=== PATIENT | female | born 1970 | race Caucasian/White ===

== ENCOUNTER 2017-01-10 08:10 | Emergency (ER) | payer OTHER ==
[~2017-01-10] VITALS: Ht 172.7 cm; Wt 67.3 kg
[~2017-01-10 08:10] MED LIST: AZIT-12 PO; CEFD1CAP8 PO; IPRASOL4 IN; IPRASOL4 NEB; NICO14PA TD; NICO2GUM62 PO; PERCOCET PO; TIOT18INH INH; TYLE325T5 PO; XARE1TAB PO
[2017-01-10] MEDS ORDERED: LOSA50TA20 PO (08:38)
[2017-01-10] MEDS ORDERED: diphenhydrAMINE INJ 50MG/ML VIAL (J1200) IV STA (09:41)
[2017-01-10] MEDS ORDERED: PANTOPRAZOLE 40MG INJ (PROTONIX) (C9113) IV ONE (09:45)
[2017-01-10] MEDS ORDERED: ONDANSETRON 4MG/2ML VIAL (J2405) IV ONE (09:45)
[2017-01-10] MEDS ORDERED: NS 1,000 ML IV ONE (09:45)
[2017-01-10 10:05] LABS: BASO % 0.4 % (0.0-1.0); EOS # 0.1 K/mm3 (0.0-0.50); EOS % 0.9 % (0.0-3.0); LARGE UNSTAINED CELL # 0.2 K/mm3 (0.0-0.4); LARGE UNSTAINED CELL % 1.4 % (0.0-4.0); LYMPH # 2.3 K/mm3 (1.5-4.5); MEAN CORPUSCULAR HEMOGLOBIN 35.3 pg (27.0-33.0); MEAN CORPUSCULAR HGB CONC 34.2 g/dl (32.0-36.5); MEAN CORPUSCULAR VOLUME 103.3 fl (80.0-96.0); MONO # 0.7 K/mm3 (0.0-0.8); MONO % 5.6 % (0.0-5.0); NEUTROPHILS # 8.3 K/mm3 (1.8-7.7); NEUTROPHILS % 71.7 % (36.0-66.0); PLATELET COUNT, AUTOMATED 381 k/mm3 (150-450); RED CELL DISTRIBUTION WIDTH 12.5 % (11.5-14.5); WHITE BLOOD COUNT 11.6 K/mm3 (4.0-10.0)
[2017-01-10 10:13] LABS: ALBUMIN 3.9 GM/DL (3.2-5.2); ALBUMIN/GLOBULIN RATIO 1.15 (1.00-1.93); ALKALINE PHOSPHATASE 126 U/L (45-117); ALT/SGPT 23 U/L (12-78); AMYLASE 24 U/L (25-115); ANION GAP 6 MEQ/L (8-16); AST/SGOT 22 U/L (15-37); BILIRUBIN,DIRECT 0.2 MG/DL (0.0-0.2); BILIRUBIN,TOTAL 0.8 MG/DL (0.2-1.0); BLOOD UREA NITROGEN 10 MG/DL (7-18); CALCIUM LEVEL 9.1 MG/DL (8.5-10.1); CARBON DIOXIDE LEVEL 27 MEQ/L (21-32); CHLORIDE LEVEL 108 MEQ/L (98-107); CREATININE FOR GFR 0.91 MG/DL (0.55-1.02); GLOMERULAR FILTRATION RATE > 60.0 (>58); GLUCOSE, FASTING 105 MG/DL (70-105); POTASSIUM SERUM 3.9 MEQ/L (3.5-5.1); SODIUM LEVEL 141 MEQ/L (136-145); TOTAL PROTEIN 7.3 GM/DL (6.4-8.2)
[2017-01-10] MEDS ORDERED: ACETAMINOPHEN 325 MG TAB PO ONE (10:45)
[2017-01-10] MEDS ORDERED: CLAR1TAB2 PO (11:16)
[2017-01-10] MEDS ORDERED: ZOFR4TAB3 PO (11:16)
[2017-01-10 11:33] VITALS: BP 117/75
[2017-01-11] MEDS ORDERED: BENA25TA10 PO (06:05)
--- NOTE | 2017-01-12 08:50 | ECGEPIP ---
Stationary ECG Study [facility] - ED Test Date: 2017-01-10 Pat Name: GAIL CALDERON Department: Room: - Gender: F Residence Director: leandro : 1970 Requested By: ELLIOTT PITTS PA-C. Order Number: [id number] Reading MD: Kirsten Aiken Measurements Intervals [place] Rate: 53 P: 68 MO: 155 QRS: 31 QRSD: 109 T: 16 QT: 455 QTc: 430 Interpretive Statements SINUS BRADYCARDIA WITH SINUS ARRHYTHMIA LOW VOLTAGE LIMB DECREASED RATE 01/31/16 Electronically Signed On 01-12-2017 8:49:57 EDT by Kirsten Aiken
== END 2017-01-10 11:35 | disposition home or self-care (01) ==
LOC: M ED 08:54
DX: R19.7 Diarrhea, unspecified (principal); L25.5 Unspecified contact dermatitis due to plants, except food; F17.200 Nicotine dependence, unspecified, uncomplicated; I10 Essential (primary) hypertension; Z86.711 Personal history of pulmonary embolism; Z79.899 Other long term (current) drug therapy; Z88.2 Allergy status to sulfonamides
CPT/HCPCS: 80048; 80076; 81001; 81025; 82150; 83690; 85025; 93005; 96374; 96375; 99284; C9113; J1200; J2405

== ENCOUNTER 2017-01-11 05:45 | Emergency (ER) | payer OTHER ==
[~2017-01-11] VITALS: Ht 172.7 cm; Wt 67.3 kg
[~2017-01-11 05:45] MED LIST changes: -AZIT-12 PO; +AZIT250T3 PO; +CLAR1TAB2 PO; +LOSA50TA20 PO; +ZOFR4TAB3 PO
[2017-01-11 05:49] VITALS: BP 110/78
[2017-01-11] MEDS ORDERED: BENA25TA9 PO (06:05)
== END 2017-01-11 07:58 | disposition left against medical advice (07) ==
LOC: M ED 07:10
DX: R21 Rash and other nonspecific skin eruption (principal); Z53.29 Procedure and treatment not carried out because of patient's decision for other reasons

== ENCOUNTER → 2017-05-06 | Outpatient (REF) | payer OTHER ==
[~2017-05-06] MED LIST changes: +AZIT-12 PO; -AZIT250T3 PO; +BENA25TA10 PO
== END ==
LOC: M SFHCCLAY 08:51
PROVIDERS: ATTEND Nurse Practitioner Family
DX: I10 Essential (primary) hypertension (principal)

== ENCOUNTER → 2017-10-19 | Outpatient (REF) | payer OTHER ==
[2017-10-19 14:40] LABS: FOLATE 3.6 NG/ML; VITAMIN B12 LEVEL 416 PG/ML
[2017-10-19 14:42] LABS: ESTIMATED AVERAGE GLUCOSE 88 MG/DL (60-110); HEMOGLOBIN A1c 4.7 %
[2017-10-19 14:44] LABS: FREE T4 0.89 NG/DL (0.76-1.46); RHEUMATOID FACTOR QUANT < 10.0 IU/ML (<15.0); TOTAL PROTEIN 7.8 GM/DL (6.4-8.2)
[2017-10-19 15:17] LABS: ERYTHROCYTE SEDIMENTATION RATE 2 mm/hr (0-20)
[2017-10-20 11:14] LABS: ALBUMIN 4.73 GM/DL (3.29-5.55); ALBUMIN % 60.7 % (55.8-66.1); ALPHA-1-GLOBULIN % 4.9 % (2.9-4.9); ALPHA-1-GLOBULINS 0.38 GM/DL (0.17-0.41); ALPHA-2-GLOBULINS % 11.5 % (7.1-11.8); BETA-1-GLOBULINS 0.47 GM/DL (0.28-0.60); BETA-2-GLOBULINS % 5.1 % (3.2-6.5); GAMMA GLOBULIN % 11.8 % (11.1-18.8); GAMMA GLOBULINS 0.92 GM/DL (0.65-1.58)
[2017-10-22 08:06] LABS: ANTI THROMBIN 3 FUNCT ACTIVITY 178 % (75-135); PROTEIN C FUNCTIONAL ACTIVITY 149 % (73-180); PROTEIN S FUNCTIONAL ACTIVITY 154 % (63-140); VITAMIN B1 LEVEL WHOLE BLOOD 179.2 nmol/L (66.5-200.0); VITAMIN B6,PYRIDOXAL PHOSPHATE 4.8 ug/L (2.0-32.8)
== END ==
LOC: M LABNEURO 09:12
DX: R20.0 Anesthesia of skin (principal); D68.59 Other primary thrombophilia; Z13.1 Encounter for screening for diabetes mellitus
CPT/HCPCS: 82746

== ENCOUNTER → 2017-12-30 | Outpatient (REF) | payer OTHER ==
[2017-12-30 13:45] LABS: IMMUNOGLOBULIN G 696 MG/DL (681-1648); IMMUNOGLOBULIN M 132 MG/DL (40-230)
[2017-12-30 14:02] LABS: TOTAL PROTEIN,RANDOM URINE < 5.0 MG/DL (0.0-12.0); URINE TOTAL PROTEIN < 5.0 MG/DL (0-12)
[2017-12-30 17:38] LABS: REASON FOR REVIEW WBC/LEUKEMIA/BLAST; SLIDE REVIEW Report; SOURCE PERIPHERAL SMEAR
[2018-01-01 00:09] LABS: FREE LAMBDA LIGHT CHAINS SERUM 12.3 mg/L (5.7-26.3); KAPPA/LAMBDA RATIO SERUM 1.06 (0.26-1.65)
[2018-01-04 12:38] LABS: TOTAL PROTEIN 6.8 GM/DL (6.4-8.2)
[2018-01-04 12:39] LABS: ALPHA-1-GLOBULIN % 4.9 % (2.9-4.9); ALPHA-2-GLOBULINS % 11.1 % (7.1-11.8)
[2018-01-04 12:40] LABS: ALBUMIN 4.15 GM/DL (3.29-5.55); ALPHA-1-GLOBULINS 0.33 GM/DL (0.17-0.41); ALPHA-2-GLOBULINS 0.75 GM/DL (0.42-0.99); BETA-1-GLOBULINS % 5.9 % (4.7-7.2); BETA-2-GLOBULINS 0.33 GM/DL (0.19-0.55); BETA-2-GLOBULINS % 4.9 % (3.2-6.5); GAMMA GLOBULIN % 12.2 % (11.1-18.8); GAMMA GLOBULINS 0.83 GM/DL (0.65-1.58)
== END ==
LOC: M LAB REF 12:56
DX: D72.829 Elevated white blood cell count, unspecified (principal)

== ENCOUNTER → 2018-01-21 | Outpatient (REF) | payer OTHER ==
[2018-01-21 13:57] LABS: VITAMIN B12 LEVEL 360 PG/ML (247-911)
[2018-01-28 00:10] LABS: HOMOCYST(E)INE SERUM 34.6 umol/L (0.0-15.0)
[2018-01-28 00:10] LABS: Methylmalonic Acid 156 nmol/L (0-378)
== END ==
LOC: M LAB REF 13:08
DX: Z00.00 Encounter for general adult medical examination without abnormal findings (principal)

== ENCOUNTER → 2018-04-18 | Outpatient (REF) | payer OTHER ==
[2018-04-18 18:38] LABS: BASO # 0.1 10^3/uL (0.0-0.2); BASO % 0.6 % (0.0-1.0); EOS # 0.2 10^3/uL (0.0-0.50); EOS % 1.2 % (0.0-3.0); HEMATOCRIT 39.7 % (36.0-47.0); HEMOGLOBIN 13.7 g/dl (12.0-15.5); IMMATURE GRANULOCYTE % 0.5 % (0-3.0); LYMPH # 3.2 10^3/uL (1.5-4.5); LYMPH % 25.2 % (24.0-44.0); MEAN CORPUSCULAR HEMOGLOBIN 34.6 pg (27.0-33.0); MEAN CORPUSCULAR HGB CONC 34.5 g/dl (32.0-36.5); MEAN CORPUSCULAR VOLUME 100.3 fl (80.0-96.0); MONO # 0.9 10^3/uL (0.0-0.8); MONO % 6.9 % (0.0-5.0); NEUTROPHILS # 8.3 10^3/uL (1.8-7.7); NEUTROPHILS % 65.6 % (36.0-66.0); PLATELET COUNT, AUTOMATED 364 10^3/uL (150-450); RED BLOOD COUNT 3.96 10^6/uL (4.00-5.40); RED CELL DISTRIBUTION WIDTH 12.4 % (11.5-14.5); WHITE BLOOD COUNT 12.7 10^3/uL (4.0-10.0)
[2018-04-18 18:40] LABS: CONTROL LINE HCG INT CTR LINE PRESENT; HCG, SERUM QUALITATIVE NEGATIVE (NEGATIVE)
[2018-04-18 18:48] LABS: ANION GAP 10 MEQ/L (8-16); BLOOD UREA NITROGEN 17 MG/DL (7-18); CALCIUM LEVEL 8.7 MG/DL (8.5-10.1); CARBON DIOXIDE LEVEL 23 MEQ/L (21-32); CHLORIDE LEVEL 108 MEQ/L (98-107); CHOLESTEROL LEVEL 147 MG/DL (<200); CHOLESTEROL RISK RATIO 2.409 (<5); CREATININE FOR GFR 0.93 MG/DL (0.55-1.30); GLOMERULAR FILTRATION RATE > 60.0 (>58); GLUCOSE, FASTING 84 MG/DL (70-100); HDL CHOLESTEROL 61 MG/DL (>40); LDL CHOLESTEROL 58 MG/DL (<100); NON-HDL-C 86 MG/DL; SODIUM LEVEL 141 MEQ/L (136-145); TRIGLYCERIDES LEVEL 140 MG/DL (<150)
[2018-04-21 00:11] LABS: HOMOCYST(E)INE SERUM 31.9 umol/L (0.0-15.0)
== END ==
LOC: M SFHCCLAY 08:51
DX: I10 Essential (primary) hypertension (principal); Z01.818 Encounter for other preprocedural examination

== ENCOUNTER 2018-06-20 18:54 | Emergency (ER) | payer OTHER | END 2018-06-20 20:45 | disposition home or self-care (01) | LOC: M ED 20:45 | DX: S09.93XA Unspecified injury of face, initial encounter (principal); Y04.8XXA Assault by other bodily force, initial encounter; Y07.01 Husband, perpetrator of maltreatment and neglect; Y92.018 Other place in single-family (private) house as the place of occurrence of the external cause; I10 Essential (primary) hypertension; D68.2 Hereditary deficiency of other clotting factors; Z88.1 Allergy status to other antibiotic agents; Z88.2 Allergy status to sulfonamides; F17.210 Nicotine dependence, cigarettes, uncomplicated | CPT/HCPCS: 99284 ==

== ENCOUNTER → 2018-12-22 | Outpatient (REF) | payer OTHER ==
[~2018-12-22] MED LIST changes: +IPRA0.00 IN; +IPRA0.00 NEB; -IPRASOL4 IN; -IPRASOL4 NEB; -LOSA50TA20 PO; +LOSA50TA88 PO; +ZOFR4TAB14 PO; -ZOFR4TAB3 PO
[2018-12-22 17:47] LABS: BASO # 0.1 10^3/uL (0.0-0.2); BASO % 0.5 % (0.0-1.0); EOS # 0.2 10^3/uL (0.0-0.50); EOS % 1.3 % (0.0-3.0); HEMATOCRIT 39.2 % (36.0-47.0); HEMOGLOBIN 13.6 g/dl (12.0-15.5); LYMPH # 3.8 10^3/uL (1.5-4.5); LYMPH % 21.7 % (24.0-44.0); MEAN CORPUSCULAR HEMOGLOBIN 33.9 pg (27.0-33.0); MEAN CORPUSCULAR HGB CONC 34.7 g/dl (32.0-36.5); MEAN CORPUSCULAR VOLUME 97.8 fl (80.0-96.0); MONO # 1.5 10^3/uL (0.0-0.8); MONO % 8.5 % (0.0-5.0); NEUTROPHILS # 11.8 10^3/uL (1.8-7.7); NEUTROPHILS % 67.4 % (36.0-66.0); PLATELET COUNT, AUTOMATED 337 10^3/uL (150-450); RED BLOOD COUNT 4.01 10^6/uL (4.00-5.40); WHITE BLOOD COUNT 17.5 10^3/uL (4.0-10.0)
[2018-12-22 17:51] LABS: ALBUMIN 3.7 GM/DL (3.2-5.2); BILIRUBIN,TOTAL 0.5 MG/DL (0.2-1.0); CALCIUM LEVEL 8.9 MG/DL (8.5-10.1); CREATININE FOR GFR 1.11 MG/DL (0.55-1.30); GLOMERULAR FILTRATION RATE 56.1 (>58); POTASSIUM SERUM 3.6 MEQ/L (3.5-5.1); TOTAL PROTEIN 6.6 GM/DL (6.4-8.2)
== END ==
LOC: M LABNEURO 15:07
PROVIDERS: ATTEND Psychiatry & Neurology Neurology
DX: C95.90 Leukemia, unspecified not having achieved remission (principal)

== ENCOUNTER → 2018-12-22 | Outpatient (CLI) | payer OTHER ==
--- NOTE | 2018-12-22 16:43 | REP ---
Clinical: Myeloma. Technique: 16 total images of the axial and appendicular skeletal structures. Findings: Bone survey demonstrates no significant or suspicious lytic or blastic osseous lesions. The osseous structures and joint spaces are essentially intact and age appropriate. Impression: No significant osseous lesions are appreciated. Electronically Signed by Al Frederick MD 12/22/2018 04:34 P
== END ==
LOC: M RAD 15:39
PROVIDERS: ATTEND Psychiatry & Neurology Neurology
DX: M94.9 Disorder of cartilage, unspecified (principal)

== ENCOUNTER → 2019-01-24 | Outpatient (CLI) | payer OTHER ==
[~2019-01-24] MED LIST changes: +GABA-845 PO; +LOVE1INJ SC; +XARE10TA PO
--- NOTE | 2019-01-25 14:46 | REP ---
REASON FOR EXAMINATION: Neoplasm of uncertain behavior of bone. There are no prior CT scans to review. There is no prior CT/PET examination to review. After the intravenous administration of 9.73 millicuries of FDG18 triplane whole body PET/CT was performed from the skull base to the mid thigh. There is no abnormal hypermetabolic activity seen in the neck, chest, abdomen, or pelvis. Standard CT component of today's examination shows an oval-shaped 5 x 4.2 x 4.6 cm sized water Hounsfield unit reading structure in the right hemipelvis consistent with a cyst. IMPRESSION: 1. No abnormal hypermetabolic activity is present. 2. Right hemipelvic cystic structure as described above. Followup with pelvic ultrasonography is recommended. Electronically Signed by Ryan Pate DO 01/25/2019 03:43 P
== END ==
LOC: M PLARAD 12:16
PROVIDERS: ATTEND Internal Medicine
DX: D48.0 Neoplasm of uncertain behavior of bone and articular cartilage (principal)
CPT/HCPCS: 78815; A9552

== ENCOUNTER → 2019-03-01 | Outpatient (CLI) | payer OTHER ==
[~2019-03-01] MED LIST changes: +GABA600T4 PO; +NICO2GUM52 PO; -NICO2GUM62 PO
--- NOTE | 2019-03-02 06:01 | REP ---
Clinical: Cyst . Technique: Transabdominal pelvic ultrasound followed by transvaginal examination for better evaluation of the endometrium and adnexa with color Doppler evaluation of the ovaries. Findings: Bladder is unremarkable and measures 7.0 x 6.7 x 8.9 cm. Normal anteverted uterus measures 7.7 x 3.6 x 4.6 cm. The endometrial complex measures 5.4 mm thickness and small adjacent echogenic foci may represent small chronic nonspecific calcifications. No discrete uterine or endometrial mass lesion appreciated. Bilateral ovaries are normal in appearance and vascularity without evidence for torsion. Right ovary measures 4.7 x 4.0 x 5.2 cm with 4.3 x 3.7 x 3.9cm cyst ; R I = 0.39 . Left ovary measures 2.2 x 1.6 x 2.3 cm with 1.3 cm dominant follicle ; R I = 0.56. No pelvic fluid or adnexal mass lesion . Impression: 1. 4.3 cm right ovarian cyst. Consider follow-up examination in 4-6 weeks to evaluate for resolution. Electronically Signed by Al Frederick MD 03/02/2019 05:53 A
== END ==
LOC: M RAD 14:54
PROVIDERS: ATTEND Internal Medicine
DX: N83.201 Unspecified ovarian cyst, right side (principal)

== ENCOUNTER 2020-08-21 12:48 | Emergency (ER) | payer OTHER ==
[~2020-08-21] VITALS: Ht 172.7 cm; Wt 71.8 kg
[~2020-08-21 12:48] MED LIST changes: +NICO-13 PO; -NICO2GUM52 PO
--- OUTSIDE RECORDS SUMMARY | 2020-08-21 12:55 | CCD ---
Author Author [facility] Organization [facility] Address Unknown Phone Unavailable Care Team Providers Care Mill Crane Operator Name Role Phone Naomie Acevedo Unavailable PROBLEMS Type Condition ICD9-CM Code [id number] Code Onset Dates Condition S tatus SNOMED Code Notes Problem Pulmonary embolism I26.99 Active 54345734 Problem Abnormal chest CT R93.8 Active 955362587 Problem Pain of left hip joint M25.552 Active 35889141 Problem History of pulmonary embolism Z86.711 Active 16 4330856 Problem Emphysema, unspecified J43.9 Active 27419058 Problem Elevated blood-pressure reading, without diagnos is of hypertension R03.0 Active 301978203 Problem Essential hypertension I10 Active 06707229 Problem Menopausal and perimenopausal disorder N95.9 A ctive 702554394 ALLERGIES Allergen (clinical drug ingredient) Drug/Non Drug Allergy do cumented on EMR Reaction Allergy Type Onset Date Status Sulfur(NDC Code:[address]-44) hives Drug Allergy Active lisinopril Lisinopril(NDC Code:[address]-24) ACEI Cough Drug Allergy Active ENCOUNTERS from 1970 to 2020-07-17 Encounter Location Date Provider Diagnosis [facility] [place] [address] Jun Naomie Acevedo IMMUNIZATIONS Vaccine Route Administration Date Status Influenza (18 yrs & older) Flublok IM Intramuscular Jul 02, 2020 Administered Influenza (18 yrs & older) Flublok IM Intramuscular Jun 08, 2019 Administered Influenza (6mo & up) Fluzone IM Intramuscular May 18, 2018 Ad ministered Influenza (6mo & up) Fluzone IM Intramuscular Jun 08, 2017 Ad ministered Influenza (6mo & up) Fluzone IM Intramuscular Jun 05, 2016 Ad ministered SOCIAL HISTORY Tobacco Use: Social History Observation Description Date Details (start date - stop date) Current Smoker Sex Assigned At : Social History Observation Description Sex Assigned At Unknown Education: Question Answer Notes Level of Education: Not Finished College Audit Question Answer Notes Total Score: 2 Interpretation: Alcohol Education Language: Question Answer Notes Languages spoken: Sinhala Cheondoism: Question Answer Notes Cheondoism 08 Restoration Sexual Hx: Question Answer Notes Had sex in the last 12 months (vaginal, oral, or anal)? Yes LMP: 02/17/2017 Have you ever had an STD? No with Men only Use protection? No Drug and Alcohol Question Answer Notes Total Score: 0 Interpretation: No problems reported BMI Care Goal Follow-Up Question Answer Notes Above Normal BMI Follow-Up Dietary management educatio n, guidance, and counseling Tobacco Use: Question Answer Notes Are you a: current smoker Additional Findings: Tobacco User Moderate cigarette smoker (10-19 cigs/day) Smoking Cessation Information Given 05/18/2018 Patient counseled on the dangers of tobacco use and urged to quit: 05/18/2018 How many cigarettes a day do you smoke? 11-20 1/2 pack daily Are you interested in quitting? Not ready to quit REASON FOR REFERRAL No Information VITAL SIGNS No information MEDICATIONS Medication SIG (Take, Route, Frequency, Duration) Notes Start Da te End Date Status Losartan Potassium 50 MG TAKE ONE TABLET BY MOUTH ONCE A DAY Orally Once a day Active Gabapentin 600 MG 1 tablet Orally three times daily for 90 day(s) Active Nebulizer - as directed J43.9 four times daily as needed 0 2 Oct, 2019 Active Spiriva HandiHaler 18 MCG INHALE THE CONTENTS OF ONE C APSULE VIA HANDIHALER BY MOUTH ONCE DAILY for 90 days Act félix ProAir HFA 108 (90 Base) MCG/ACT 2 puffs as needed Inh alation every 4 hrs PRN for 90 day(s) Jan, Active Percocet 5-325 MG 1 tablet as needed Orally M25.552 tid MDD=3 for 14 day(s) Jun, Active Xarelto 10 MG 1 tablet with food Orally Once a day Active Ipratropium-Albuterol 0.5-2.5 (3) MG/3ML 3 ml Inhalati on every 4 hours as needed for 90 days Active PROCEDURES No Information RESULTS No Results REASON FOR VISIT renewal MEDICAL (GENERAL) HISTORY Type Description Date Medical History PULMONARY EMBOLISM 01/2016 Medical History EMPHYSEMA Medical History Factor V Medical History HYPERTENSION Medical History MENOPAUSAL SYMPTOMS Medical History RAYNAUDS Surgical History No know Surgical history Hospitalization History pulmonary embolism 01/2016 Goals Section No Information Health Concerns No Information MEDICAL EQUIPMENT No Information MENTAL STATUS No Information FUNCTIONAL STATUS No Information ASSESSMENTS No Information PLAN OF TREATMENT Medication Medication Name Sig Start Date Stop Date Losartan Potassium 50 MG TAKE ONE TABLET BY MOUTH ONCE A DAY Orally Once a day Percocet 5-325 MG 1 tablet as needed Orally M25.552 tid MDD=3 for 14 day(s) Jun, Xarelto 10 MG 1 tablet with food Orally Once a day ProAir HFA 108 (90 Base) MCG/ACT 2 puffs as needed Inh alation every 4 hrs PRN for 90 day(s) Jan, Gabapentin 600 MG 1 tablet Orally three times daily for 90 day(s ) Nebulizer - as directed J43.9 four times daily as needed Oct, Spiriva HandiHaler 18 MCG INHALE THE CONTENTS OF ONE C APSULE VIA HANDIHALER BY MOUTH ONCE DAILY for 90 days Ipratropium-Albuterol 0.5-2.5 (3) MG/3ML 3 ml Inhalati on every 4 hours as needed for 90 days Next Appt Details Provider Name:Naomie Acevedo, 2020-07-30 08:00:00 AM, [address] [place], [address], Insurance Providers Payer Name Payer Address Payer Phone Insured Name Patient Relati onship to Insured Coverage Start Date Coverage End Date [facility] [address] [id number] [facility] [id number] GAIL CALDERON 2018
--- OUTSIDE RECORDS SUMMARY | 2020-08-21 12:55 | CCD ---
Author Author [facility] Organization [facility] Address Unknown Phone Unavailable Care Team Providers Care Outpatient Pharmacy Manager Name Role Phone AcevedoGlenja Unavailable PROBLEMS Type Condition ICD9-CM Code [id number] Code Onset Dates Condition S tatus SNOMED Code Notes Problem Pulmonary embolism I26.99 Active 02202103 Problem Abnormal chest CT R93.8 Active 462897714 Problem Pain of left hip joint M25.552 Active 71606893 Problem History of pulmonary embolism Z86.711 Active 16 5934792 Problem Emphysema, unspecified J43.9 Active 94984103 Problem Elevated blood-pressure reading, without diagnos is of hypertension R03.0 Active 168848621 Problem Essential hypertension I10 Active 53125645 Problem Menopausal and perimenopausal disorder N95.9 A ctive 457201529 ALLERGIES Allergen (clinical drug ingredient) Drug/Non Drug Allergy do cumented on EMR Reaction Allergy Type Onset Date Status Sulfur hives Drug Allergy Active lisinopril Lisinopril([facility] Code:[address]-72) ACEI Cough Drug Allergy Active ENCOUNTERS from 1970 to 2020-08-02 Encounter Location Date Provider Diagnosis [facility] [address] [place] [address] Jul Naomie Acevedo IMMUNIZATIONS Vaccine Route Administration Date [...] Education Language: Question Answer Notes Languages spoken: Georgian Anglican: Question Answer Notes Anglican 08 Temple Sexual Hx: Question Answer Notes Had sex [...] Orally M25.552 tid MDD=3 for 14 day(s) Jul, Active Xarelto 10 MG 1 tablet with food Orally Once a day Active Ipratropium-Albuterol 0.5-2.5 (3) MG/3ML 3 ml Inhalati on every 4 hours as needed for 90 days Active PROCEDURES No Information RESULTS No Results REASON FOR VISIT refill MEDICAL (GENERAL) HISTORY Type Description Date Medical [...] Orally M25.552 tid MDD=3 for 14 day(s) Jul, Xarelto 10 MG 1 tablet with food [...] days Next Appt Details Provider Name:Naomie Acevedo, 2020-08-21 08:00:00 AM, [address] [place], [address], Insurance Providers Payer Name Payer Address Payer Phone Insured Name Patient Relati onship to Insured Coverage Start Date Coverage End Date [facility] [address] [address] [facility] [phone] GAIL CALDERON self 2018
--- OUTSIDE RECORDS SUMMARY | 2020-08-21 12:55 | CCD ---
Author Author [facility] Organization [facility] Address Unknown Phone Unavailable Care Team Providers Care Medication Reconciliation Technician Name Role Phone AcevedoGlenja Unavailable PROBLEMS Type Condition ICD9-CM Code [id number] Code Onset Dates Condition S tatus SNOMED Code Notes Problem Pulmonary embolism I26.99 Active 48740611 Problem Abnormal chest CT R93.8 Active 124514592 Problem Pain of left hip joint M25.552 Active 99878136 Problem History of pulmonary embolism Z86.711 Active 16 7856084 Problem Emphysema, unspecified J43.9 Active 33464127 Problem Elevated blood-pressure reading, without diagnos is of hypertension R03.0 Active 155914111 Problem Essential hypertension I10 Active 07426071 Problem Menopausal and perimenopausal disorder N95.9 A ctive 575083775 ALLERGIES Allergen (clinical drug ingredient) Drug/Non Drug Allergy do cumented on EMR Reaction Allergy Type Onset Date Status Sulfur hives Drug Allergy Active lisinopril Lisinopril([facility] Code:[address]-12) ACEI Cough Drug Allergy Active ENCOUNTERS from 1970 to 2020-08-15 Encounter Location Date Provider Diagnosis [facility] [place] [address] Jul Naomie Acevedo IMMUNIZATIONS Vaccine Route Administration [...] Education Language: Question Answer Notes Languages spoken: Tajik Jehovah'S Witness: Question Answer Notes Jehovah'S Witness 08 Uatsdin Sexual Hx: Question Answer Notes Had sex [...] Information RESULTS No Results REASON FOR VISIT Refill - Percocet MEDICAL (GENERAL) HISTORY Type Description Date Medical [...] 4 hours as needed for 90 days Insurance Providers Payer Name Payer Address Payer Phone Insured Name Patient Relati onship to Insured Coverage Start Date Coverage End Date [facility] [address] [address] [facility] [phone] GAIL CALDERON 2018
--- OUTSIDE RECORDS SUMMARY | 2020-08-21 12:56 | CCD | Continuity of Care Document ---
Author Author [facility] [place] Organization Unknown Address [address] [place] [address] [place] [address] Phone [phone] Care Team Providers Care Cable Hooker Name Role Phone Naomie AcevedoP AUTM [phone] [employer] AUTM [phone] Problems Description No Information Available Social History Type Date Description Comments Sex Unknown ETOH Use Occasionally consumes alcohol Tobacco Use Start: Unknown Patient is a current smoker, smo kes every day Smoking Status Reviewed: 06/12/20 Patient is a current smoker, smokes every day Allergies, Adverse Reactions, Alerts Active Allergies Reaction Severity Comments Date Sulfa Flushing, Hives 06/12/2020 Medications Active Medications SIG Qnty Indications Ordering Provide r Date Xarelto 10mg Tablets Unknown Losartan Potassium 50mg Tablets Unknown Calcium 1000 + D Unknown 00 Spiriva Handihaler 18mcg Capsules Unknown Albuterol Fha 90mcg/Act Aerosol 2 puffs q4hrs./prn sob or wheezing Unknown Albuterol Sulfate (2 .5mg/3ML) 0.083% Nebulizer for use with neb machine, 1 vial inhaled by mouth ever y 4-6 hours as needed Unknown Hormone Pellets Unknown 0 Immunizations Description No Information Available Vital Signs Date Vital Result Comment 06/12/2020 9:46am BP Systolic 135 mmHg BP Diastolic 90 mmHg Heart Rate 72 /min Respiratory Rate 16 /min O2 % BldC Oximetry 99 % Body Temperature 98.0 F Weight 148.00 lb Height 68 inches 5'8" BMI (Body Mass Index) 22.5 kg/m2 Pain Level 0 Results Description No Information Available Procedures Description No Information Available Medical Devices Description No Information Available Encounters Type Date Location Provider Dx Diagnosis Office Visit 06/12/2020 9:25a Main Office SAUL Hampton J06 .9 Acute upper respiratory infection, unspecified Z72.0 Tobacco use Z20.828 Contact w and exposure to ot h viral communicable diseases Assessments Date Code Description Provider 06/12/2020 J06.9 Acute upper respiratory infectio n, unspecified SAUL Hampton 06/12/2020 Z72.0 Tobacco use SAUL Alves 06/12/2020 Z20.828 Contact with and (huang spected) exposure to other viral communicable diseases SAUL Hampton Plan of Treatment No Information Available Functional Status Description No Information Available Mental Status Description No Information Available Referrals Description No Information Available
--- OUTSIDE RECORDS SUMMARY | 2020-08-21 12:56 | CCD ---
Author Author [facility] Organization [facility] Address Unknown Phone Unavailable Care Team Providers Care Boatbuilder Wood Name Role Phone Naomie Acevedo Unavailable PROBLEMS Type Condition ICD9-CM Code [id number] Code Onset Dates Condition S tatus SNOMED Code Notes Problem Pulmonary embolism I26.99 Active 34876474 Problem Abnormal chest CT R93.8 Active 731853393 Problem Pain of left hip joint M25.552 Active 39448277 Problem History of pulmonary embolism Z86.711 Active 16 8397859 Problem Emphysema, unspecified J43.9 Active 10325167 Problem Elevated blood-pressure reading, without diagnos is of hypertension R03.0 Active 703990905 Problem Essential hypertension I10 Active 70532787 Problem Menopausal and perimenopausal disorder N95.9 A ctive 669692473 ALLERGIES Allergen (clinical drug ingredient) Drug/Non Drug Allergy do cumented on EMR Reaction Allergy Type Onset Date Status Sulfur(ND Code:[address]-62) hives Drug Allergy Active lisinopril Lisinopril(NDC Code:[address]-83) ACEI Cough Drug Allergy Active ENCOUNTERS from 1970 to 2020-06-05 Encounter Location Date Provider Diagnosis [facility] [address] [place] [address] May Naomie Acevedo IMMUNIZATIONS Vaccine Route Administration Date [...] Education Language: Question Answer Notes Languages spoken: Greek Tenriism: Question Answer Notes Tenriism 08 Restorationist Sexual Hx: Question Answer Notes Had sex [...] MEDICATIONS Medication SIG (Take, Route, Frequency, Duration) Start Date En d Date Status ProAir HFA 108 (90 Base) MCG/ACT 2 puffs as needed Inh alation every 4 hrs PRN for 90 day(s) Jan, Active Ipratropium-Albuterol 0.5-2.5 (3) MG/3ML 3 ml Inhalati on every 4 hours as needed Active Percocet 5-325 MG 1 tablet as needed Orally M25.552 tid MDD=3 for 14 day(s) May, Active Gabapentin 600 MG 1 tablet Orally three times daily for 90 day(s) Active Xarelto 10 MG 1 tablet with food Orally Once a day Active Losartan Potassium 50 MG TAKE ONE TABLET BY MOUTH ONCE A DAY Orally Once a day Active Nebulizer - as directed J43.9 four times daily as needed 02 Oct, 2 020 Active Spiriva HandiHaler 18 MCG INHALE THE CONTENTS OF ONE C APSULE VIA HANDIHALER BY MOUTH ONCE DAILY Active PROCEDURES No Information RESULTS No Results [...] Medication Name Sig Start Date Stop Date ProAir HFA 108 (90 Base) MCG/ACT 2 puffs as needed Inh alation every 4 hrs PRN for 90 day(s) Jan, Losartan Potassium 50 MG TAKE ONE TABLET BY MOUTH ONCE A DAY Orally Once a day Nebulizer - as directed J43.9 four times daily as needed Oct, Xarelto 10 MG 1 tablet with food Orally Once a day Ipratropium-Albuterol 0.5-2.5 (3) MG/3ML 3 ml Inhalati on every 4 hours as needed Percocet 5-325 MG 1 tablet as needed Orally M25.552 tid MDD=3 for 14 day(s) May, Gabapentin 600 MG 1 tablet Orally three times daily for 90 day(s ) Spiriva HandiHaler 18 MCG INHALE THE CONTENTS OF ONE C APSULE VIA HANDIHALER BY MOUTH ONCE DAILY Next Appt Details Provider Name:Naomie Acevedo, 2020-07-02 07:30:00 AM, [place], [address], Insurance Providers Payer Name Payer Address Payer Phone Insured Name Patient Relati onship to Insured Coverage Start Date Coverage End Date [facility] [id number] [facility] [phone] GAIL CALDERON 2018
--- OUTSIDE RECORDS SUMMARY | 2020-08-21 12:56 | CCD ---
Author Author [facility] Organization [facility] Address Unknown Phone Unavailable Care Team Providers Care Tig Welder Name Role Phone Naomie Acevedo Unavailable PROBLEMS Type Condition ICD9-CM Code [id number] Code Onset Dates Condition S tatus SNOMED Code Notes Problem Pulmonary embolism I26.99 Active 24357020 Problem Abnormal chest CT R93.8 Active 214762127 Problem Pain of left hip joint M25.552 Active 52456182 Problem History of pulmonary embolism Z86.711 Active 16 9385982 Problem Emphysema, unspecified J43.9 Active 42002239 Problem Elevated blood-pressure reading, without diagnos is of hypertension R03.0 Active 312620972 Problem Essential hypertension I10 Active 68825616 Problem Menopausal and perimenopausal disorder N95.9 A ctive 281921552 ALLERGIES Allergen (clinical drug ingredient) Drug/Non Drug Allergy do cumented on EMR Reaction Allergy Type Onset Date Status Sulfur(NDC Code:[address]-14) hives Drug Allergy Active lisinopril Lisinopril(NDC Code:[address]-15) ACEI Cough Drug Allergy Active ENCOUNTERS from 1970 to 2020-07-02 Encounter Location Date Provider Diagnosis [facility] [address] [place] [address] Jun Naomie Acevedo IMMUNIZATIONS Vaccine Route Administration [...] Education Language: Question Answer Notes Languages spoken: Pashto Advent: Question Answer Notes Advent 08 Rastafarian Sexual Hx: Question Answer Notes Had sex [...] Notes Start Da te End Date Status ProAir HFA 108 (90 Base) MCG/ACT 2 puffs as needed Inh alation every 4 hrs PRN for 90 day(s) Jan, Active Percocet 5-325 MG 1 tablet as needed Orally M25.552 tid MDD=3 for 14 day(s) Jun, Active Gabapentin 600 MG 1 tablet Orally three times daily for 90 day(s) Active Spiriva HandiHaler 18 MCG INHALE THE CONTENTS OF ONE C APSULE VIA HANDIHALER BY MOUTH ONCE DAILY for 90 days Act félix Xarelto 10 MG 1 tablet with food Orally Once a day Active Losartan Potassium 50 MG TAKE ONE TABLET BY MOUTH ONCE A DAY Orally Once a day Active Nebulizer - as directed J43.9 four times daily as needed 0 2 Oct, 2019 Active Ipratropium-Albuterol 0.5-2.5 (3) MG/3ML 3 ml Inhalati on every 4 hours as needed for 90 days Active PROCEDURES No Information RESULTS No Results REASON FOR VISIT Refills - Multiple MEDICAL (GENERAL) HISTORY Type Description Date Medical [...] tablet with food Orally Once a day Percocet 5-325 MG 1 tablet as needed Orally M25.552 tid MDD=3 for 14 day(s) Jun, Gabapentin 600 MG 1 tablet Orally three times daily for 90 day(s ) Spiriva HandiHaler 18 MCG INHALE THE CONTENTS OF ONE C APSULE VIA HANDIHALER BY MOUTH ONCE DAILY for 90 days Ipratropium-Albuterol 0.5-2.5 (3) MG/3ML 3 ml Inhalati on every 4 hours as needed for 90 days Next Appt Details Provider Name:Naomie Acevedo, 2020-07-30 08:00:00 AM, [address] [place] [address], [address], Insurance Providers Payer Name Payer Address Payer Phone Insured Name Patient Relati onship to Insured Coverage Start Date Coverage End Date [facility] [address] [id number] [facility] [id number] [phone] GAIL CALDERON 2018
--- OUTSIDE RECORDS SUMMARY | 2020-08-21 12:56 | CCD ---
Author Author [facility] Organization [facility] Address Unknown Phone Unavailable Care Team Providers Care Movie Shot Cameraman Name Role Phone Naomie Acevedo Unavailable PROBLEMS Type Condition ICD9-CM Code [id number] Code Onset Dates Condition S tatus SNOMED Code Notes Problem Pulmonary embolism I26.99 Active 67151347 Problem Abnormal chest CT R93.8 Active 242421662 Problem Pain of left hip joint M25.552 Active 31947874 Problem History of pulmonary embolism Z86.711 Active 16 6915795 Problem Emphysema, unspecified J43.9 Active 22887990 Problem Elevated blood-pressure reading, without diagnos is of hypertension R03.0 Active 674161107 Problem Essential hypertension I10 Active 75058458 Problem Menopausal and perimenopausal disorder N95.9 A ctive 954219931 ALLERGIES Allergen (clinical drug ingredient) Drug/Non Drug Allergy do cumented on EMR Reaction Allergy Type Onset Date Status Sulfur(NDC Code:[address]-42) hives Drug Allergy Active lisinopril Lisinopril(NDC Code:[address]-38) ACEI Cough Drug Allergy Active ENCOUNTERS from 1971 to 2020-07-02 Encounter Location Date Provider Diagnosis [facility] [address] [place] [address] Jun Naomie Acevedo Encounter for immunization Z23 IMMUNIZATIONS Vaccine Route Administration Date Status Influenza [...] Education Language: Question Answer Notes Languages spoken: German Hoahaoism: Question Answer Notes Hoahaoism 08 [facility] Sexual Hx: Question Answer Notes Had sex [...] as needed for 90 days Active PROCEDURES from 1971 to 2020-07-02 Procedure Date Ordered Result Body Site Immunization: Flublok Quadrivalent (18 years & older) 0.5mL IM (Influenza) 2020-07-02 N/A RESULTS No Results REASON FOR VISIT flu shot MEDICAL (GENERAL) HISTORY Type Description Date Medical History PULMONARY EMBOLISM 01/2016 Medical History EMPHYSEMA Medical History Factor V Medical History HYPERTENSION Medical History MENOPAUSAL SYMPTOMS Medical History RAYNAUDS Surgical History No know Surgical history Hospitalization History pulmonary embolism 01/2016 Goals Section No Information Health Concerns No Information MEDICAL EQUIPMENT No Information MENTAL STATUS No Information FUNCTIONAL STATUS No Information ASSESSMENTS Encounter Date Diagnosis Assessment Notes Treatment Notes Treatm ent Clinical Notes Jun, Encounter for immunization (ICD-10 - Z23) Patient Educated with: FLU Vaccine, Inactivated [id number] (FLU Vaccine, Inactivated [id number].pdf) PLAN OF TREATMENT Medication Medication Name Sig [...] 4 hours as needed for 90 days Treatment Notes Assessment Notes Clinical Notes Encounter for immunization Patient Educated with: FLU Vaccine, Inactivated [id number] (FLU Vaccine, Inactivated [id number].pdf) Next Appt Details Provider Name:Naomie Salmon Curtis, 2020-07-30 08:00:00 AM, [facility] [place], [address], Insurance Providers Payer Name Payer Address Payer Phone Insured Name Patient Relati onship to Insured Coverage Start Date Coverage End Date [facility] [address] [facility] [phone] GAIL CALDERON self 2018
--- OUTSIDE RECORDS SUMMARY | 2020-08-21 12:56 | CCD ---
Author Author [facility] Organization [facility] Address Unknown Phone Unavailable Care Team Providers Care Tool Builder Name Role Phone Naomie Acevedo Unavailable PROBLEMS Type Condition ICD9-CM Code [id number] Code Onset Dates Condition S tatus SNOMED Code Notes Problem Pulmonary embolism I26.99 Active 92778126 Problem Abnormal chest CT R93.8 Active 069354269 Problem Pain of left hip joint M25.552 Active 06440051 Problem History of pulmonary embolism Z86.711 Active 16 5332074 Problem Emphysema, unspecified J43.9 Active 72039100 Problem Elevated blood-pressure reading, without diagnos is of hypertension R03.0 Active 601594413 Problem Essential hypertension I10 Active 49352642 Problem Menopausal and perimenopausal disorder N95.9 A ctive 474928808 ALLERGIES Allergen (clinical drug ingredient) Drug/Non Drug Allergy do cumented on EMR Reaction Allergy Type Onset Date Status Sulfur(ND Code:[address]-11) hives Drug Allergy Active lisinopril Lisinopril(NDC Code:[address]-99) ACEI Cough Drug Allergy Active ENCOUNTERS from 1971 to 2020-05-22 Encounter Location Date Provider Diagnosis [facility] [place] [address] Apr Naomie Acevedo IMMUNIZATIONS Vaccine Route Administration Date [...] Education Language: Question Answer Notes Languages spoken: Indonesian Jainism: Question Answer Notes Jainism 08 Catholic Sexual Hx: Question Answer Notes Had sex [...] Duration) Start Date En d Date Status Losartan Potassium 50 MG TAKE ONE TABLET BY MOUTH ONCE A DAY Orally Once a day Active Ipratropium-Albuterol 0.5-2.5 (3) MG/3ML 3 ml Inhalati on every 4 hours as needed Active Nebulizer - as directed J43.9 four times daily as needed Oct, 020 Active Gabapentin 600 MG 1 tablet Orally three times daily for 90 day(s) Active ProAir HFA 108 (90 Base) MCG/ACT 2 puffs as needed Inh alation every 4 hrs PRN for 90 day(s) Jan, Active Percocet 5-325 MG 1 tablet as needed Orally M25.552 tid MDD=3 for 14 day(s) Apr, Active Xarelto 10 MG 1 tablet with food Orally Once a day Active Spiriva HandiHaler 18 MCG INHALE THE [...] Orally M25.552 tid MDD=3 for 14 day(s) Apr, Xarelto 10 MG 1 tablet with food Orally Once a day ProAir HFA 108 (90 Base) MCG/ACT 2 puffs as needed Inh alation every 4 hrs PRN for 90 day(s) Jan, Ipratropium-Albuterol 0.5-2.5 (3) MG/3ML 3 ml Inhalati on every 4 hours as needed Nebulizer - as directed J43.9 four times daily as needed Oct, Gabapentin 600 MG 1 tablet Orally three times daily for 90 day(s ) Spiriva HandiHaler 18 MCG INHALE THE CONTENTS OF ONE C APSULE VIA HANDIHALER BY MOUTH ONCE DAILY Next Appt Details Provider Name:Naomie Acevedo, 2020-07-02 07:30:00 AM, [place], [address], Insurance Providers Payer Name Payer Address Payer Phone Insured Name Patient Relati onship to Insured Coverage Start Date Coverage End Date [facility] [address] [facility] [phone] GAIL CALDERON 2018
--- OUTSIDE RECORDS SUMMARY | 2020-08-21 12:56 | CCD | Continuity of Care Document ---
Author Author [facility] Organization Unknown Address [address] [place] [address] [place] [address] Phone [phone] Care Team Providers Care Trailer Technician Name Role Phone Naomie AcevedoP AUTM [phone] [employer] AUTM [phone] Problems Description No Information Available Social History [...]
--- OUTSIDE RECORDS SUMMARY | 2020-08-21 12:56 | CCD ---
Author Author [facility] Organization [facility] Address Unknown Phone Unavailable Care Team Providers Care Chairman & Co Founder Name Role Phone Naomie Acevedo Unavailable PROBLEMS Type Condition ICD9-CM Code VCI28-UM Code Onset Dates Condition S tatus SNOMED Code Notes Problem Pulmonary embolism I26.99 Active 54761172 Problem Abnormal chest CT R93.8 Active 658593012 Problem Pain of left hip joint M25.552 Active 82692382 Problem History of pulmonary embolism Z86.711 Active 16 4011482 Problem Emphysema, unspecified J43.9 Active 80939783 Problem Elevated blood-pressure reading, without diagnos is of hypertension R03.0 Active 731375584 Problem Essential hypertension I10 Active 15733218 Problem Menopausal and perimenopausal disorder N95.9 A ctive 843415675 ALLERGIES Allergen (clinical drug ingredient) Drug/Non Drug Allergy do cumented on EMR Reaction Allergy Type Onset Date Status Sulfur(ND Code:[address]-69) hives Drug Allergy Active lisinopril Lisinopril(NDC Code:[address]-38) ACEI Cough Drug Allergy Active ENCOUNTERS from 1971 to 2020-05-24 Encounter Location Date Provider Diagnosis [facility] [place] [address] Apr Naomie Acevedo IMMUNIZATIONS Vaccine Route Administration [...] Education Language: Question Answer Notes Languages spoken: Tamazight Samaritan: Question Answer Notes Samaritan 08 Baptism Sexual Hx: Question Answer Notes Had sex [...] hrs PRN for 90 day(s) Jan, Active Spiriva HandiHaler 18 MCG INHALE THE CONTENTS OF ONE C APSULE VIA HANDIHALER BY MOUTH ONCE DAILY Active Ipratropium-Albuterol 0.5-2.5 (3) MG/3ML 3 ml [...] three times daily for 90 day(s) Active PROCEDURES No Information RESULTS No Results REASON FOR VISIT script MEDICAL (GENERAL) HISTORY Type Description Date Medical [...] tablet with food Orally Once a day Spiriva HandiHaler 18 MCG INHALE THE CONTENTS OF ONE C APSULE VIA HANDIHALER BY MOUTH ONCE DAILY Ipratropium-Albuterol 0.5-2.5 (3) MG/3ML 3 ml Inhalati on every 4 hours as needed Percocet 5-325 MG 1 tablet as needed Orally M25.552 tid MDD=3 for 14 day(s) Apr, Gabapentin 600 MG 1 tablet Orally three times daily for 90 day(s ) Next Appt Details Provider Name:Naomie Acevedo, 2020-07-02 07:30:00 AM, [address] [place], [address], Insurance Providers Payer Name Payer Address Payer Phone Insured Name Patient Relati onship to Insured Coverage Start Date Coverage End Date [facility] [address] [facility] [phone] GAIL CALDERON 2018
--- OUTSIDE RECORDS SUMMARY | 2020-08-21 12:56 | CCD ---
Author Author [facility] Organization [facility] Address Unknown Phone Unavailable Care Team Providers Care Border Patrol Agent Name Role Phone Naomie Acevedo Unavailable PROBLEMS Type Condition ICD9-CM Code BRT54-GC Code Onset Dates Condition S tatus SNOMED Code Notes Problem Pulmonary embolism I26.99 Active 52950278 Problem Abnormal chest CT R93.8 Active 988052681 Problem Pain of left hip joint M25.552 Active 16581894 Problem History of pulmonary embolism Z86.711 Active 16 2067831 Problem Emphysema, unspecified J43.9 Active 73718603 Problem Elevated blood-pressure reading, without diagnos is of hypertension R03.0 Active 920333959 Problem Essential hypertension I10 Active 92294537 Problem Menopausal and perimenopausal disorder N95.9 A ctive 188212480 ALLERGIES Allergen (clinical drug ingredient) Drug/Non Drug Allergy do cumented on EMR Reaction Allergy Type Onset Date Status Sulfur(NDC Code:[address]-19) hives Drug Allergy Active lisinopril Lisinopril(NDC Code:[address]-44) ACEI Cough Drug Allergy Active ENCOUNTERS from 1971 to 2020-05-25 Encounter Location Date Provider Diagnosis [address] [address] Apr, Naomie Acevedo IMMUNIZATIONS Vaccine Route Administration Date [...] Education Language: Question Answer Notes Languages spoken: Yoruba Anglican: Question Answer Notes Anglican 08 Confucianism Sexual Hx: Question Answer Notes Had sex [...] Information RESULTS No Results REASON FOR VISIT Oxycodone-Acetaminophen 5-325mg tablets MEDICAL (GENERAL) HISTORY Type Description Date Medical [...] Name:Naomie Acevedo, 2020-07-02 07:30:00 AM, [address] [place], [address], Insurance Providers Payer Name Payer Address Payer Phone Insured Name Patient Relati onship to Insured Coverage Start Date Coverage End Date [facility] [place] [place] [address] [facility] [phone] GAIL CALDERON 2018
--- OUTSIDE RECORDS SUMMARY | 2020-08-21 12:56 | CCD ---
Author Author [facility] Organization [facility] Address Unknown Phone Unavailable Care Team Providers Care Tax Compliance Representative Name Role Phone Naomie Acevedo Unavailable PROBLEMS Type Condition ICD9-CM Code KLO57-RU Code Onset Dates Condition S tatus SNOMED Code Notes Problem Pulmonary embolism I26.99 Active 18157336 Problem Abnormal chest CT R93.8 Active 517388219 Problem Pain of left hip joint M25.552 Active 39127921 Problem History of pulmonary embolism Z86.711 Active 16 2562733 Problem Emphysema, unspecified J43.9 Active 66895559 Problem Elevated blood-pressure reading, without diagnos is of hypertension R03.0 Active 844295651 Problem Essential hypertension I10 Active 27899291 Problem Menopausal and perimenopausal disorder N95.9 A ctive 216297091 ALLERGIES Allergen (clinical drug ingredient) Drug/Non Drug Allergy do cumented on EMR Reaction Allergy Type Onset Date Status Sulfur(ND Code:[address]-78) hives Drug Allergy Active lisinopril Lisinopril(NDC Code:[address]-68) ACEI Cough Drug Allergy Active ENCOUNTERS from 1971 to 2020-06-19 Encounter Location Date Provider Diagnosis [facility] [address] [place] [address] May Naomie Acevedo IMMUNIZATIONS Vaccine Route Administration [...] Education Language: Question Answer Notes Languages spoken: Upper Sorbian Yazidi: Question Answer Notes Yazidi 08 Episcopalian Sexual Hx: Question Answer Notes Had sex [...] as needed 0 2 Oct, 2019 Active Gabapentin 600 MG 1 tablet Orally three times daily for 90 day(s) Active Percocet 5-325 MG 1 tablet as needed Orally M25.552 tid MDD=3 for 14 day(s) May, Active Losartan Potassium 50 MG TAKE ONE TABLET BY MOUTH ONCE A DAY Orally Once a day Active Xarelto 10 MG 1 tablet with [...] ONCE A DAY Orally Once a day Xarelto 10 MG 1 tablet with food Orally Once a day Percocet 5-325 MG 1 tablet as needed Orally M25.552 tid MDD=3 for 14 day(s) May, Ipratropium-Albuterol 0.5-2.5 (3) MG/3ML 3 ml Inhalati [...] Name:Naomie Acevedo, 2020-07-02 07:30:00 AM, [place], [address], Insurance Providers Payer Name Payer Address Payer Phone Insured Name Patient Relati onship to Insured Coverage Start Date Coverage End Date [facility] [id number] [facility] [phone] GAIL CALDERON 2018
--- OUTSIDE RECORDS SUMMARY | 2020-08-21 12:56 | CCD ---
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 Role Phone Ana GONZALEZ Unavailable Unavailable LETTIERE, Ana HUGEHS Unavailable Unavailable LETTIERE, Ana HUGHES Unavailable Unavailable LETTIERE, Ana HUGHES Unavailable Unavailable LETTIERE, Ana HUGHES Unavailable Unavailable LETTIERE, Ana HUGHES Unavailable Unavailable LETTIERE, Ana HUGHES Unavailable Unavailable LETTIERE, Ana HUGHES Unavailable Unavailable LETTIERE, Ana HUGHES Unavailable Unavailable LETTIERE, Ana HUGHES Unavailable Unavailable LETTIERE, Ana HUGHES Unavailable Unavailable LETTIERE, Ana HUGHES Unavailable Unavailable LETTIERE, Ana HUGHES Unavailable Unavailable LETTIERE, Ana HUGHES Unavailable Unavailable LETTIERE, Ana HUGHES Unavailable Unavailable LETTIERE, Ana HUGHES Unavailable Unavailable LETTIERE, Ana HUGHES Unavailable Unavailable LETTIERE, Ana HUGHES Unavailable Unavailable LETTIERE, Ana HUGHES Unavailable Unavailable LETTIERE, Ana HUGHES Unavailable Unavailable LETTIERE, A INGRIS PA Unavailable Unavailable LETTIERE, A INGRIS PA Unavailable Unavailable LETTIERE, A INGRIS PA Unavailable Unavailable LETTIERE, A INGRIS PA Unavailable Unavailable LETTIERE, A INGRIS PA Unavailable Unavailable LETTIERE, A INGRIS PA Unavailable Unavailable LETTIERE, A INGRIS PA Unavailable Unavailable LETTIERE, A INGRIS PA Unavailable Unavailable LETTIERE, A INGRIS PA Unavailable Unavailable Re-disclosure Warning The records that you are about to access may contain information from federally-assisted alcohol or drug abuse programs. If such information is present, then the following federally mandated warning applies: This information has been disclosed to you from records protected by federal confidentiality rules (42 CFR part 2). The federal rules prohibit you from making any further disclosure of this information unless further disclosure is expressly permitted by the written consent of the person to whom it pertains or as otherwise permitted by 42 CFR part 2. A general authorization for the release of medical or other information is NOT sufficient for this purpose. The Federal rules restrict any use of the information to criminally investigate or prosecute any alcohol or drug abuse patient.The records that you are about to access may contain highly sensitive health information, the redisclosure of which is protected by Article 27-F of the [facility] Public Health law. If you continue you may have access to information: Regarding HIV / AIDS; Provided by facilities licensed or operated by the [facility] Office of Mental Health; or Provided by the [facility] Office for People With Developmental Disabilities. If such information is present, then the following [facility] mandated warning applies: This information has been disclosed to you from confidential records which are protected by state law. State law prohibits you from making any further disclosure of this information without the specific written consent of the person to whom it pertains, or as otherwise permitted by law. Any unauthorized further disclosure in violation of state law may result in a fine or alf sentence or both. A general authorization for the release of medical or other information is NOT sufficient authorization for further disc losure. Allergies and Adverse Reactions Type Description Substance Reaction Status Data Source(s ) lisinopril Lisinopril Lisinopril ACEI Cough Active eCW1 ([facility]) Drug allergy Sulfur Drug allergy hives Active eCW1 ([facility]) Encounters Encounter Providers Location Date Indications Data Source(s ) Unknown [address] [facility] [address] 08/14/2020 12:00:00 AM EST eCW1 ([facility]) [place] [address] [facility] [address] 07/31/2020 12:00:00 AM EST eCW1 ([facility]) Unknown [address] [facility] [place] [address] 07/12/2020 12:00:00 AM EST eCW1 ([facility]) [place] [address] [facility] [place] [address] 07/02/2020 12:00:00 AM EST eCW1 ([facility]) Outpatient [address] [facility] [place] [address] 07/02/2020 12:00:00 AM EST eCW1 ([facility]) Unknown [address] [facility] [place] [address] 06/18/2020 12:00:00 AM EST eCW1 ([facility]) Outpatient Attender: INGRIS garcía 06/12/2020 08:25:00 AM EST MEDENT ([facility]) Unknown [address] [facility] [place] [address] 06/04/2020 12:00:00 AM EST eCW1 ([facility]) [place] [address] [facility] [place] [address] 05/24/2020 12:00:00 AM EDT eCW1 ([facility]) Unknown [address] [facility] [place] [address] 05/23/2020 12:00:00 AM EDT eCW1 ([facility]) Unknown [address] [facility] [address] 05/21/2020 12:00:00 AM EDT eCW1 ([facility]) Unknown [address] [facility] [address] 05/07/2020 12:00:00 AM EDT eCW1 ([facility]) [place] [address] [facility] [address] 02/13/2020 12:00:00 AM EDT eCW1 ([facility]) [facility] [place] [address] [facility] [address] 02/07/2020 12:00:00 AM EDT eCW1 ([facility]) [place] [address] [facility] [address] 01/15/2020 12:00:00 AM EDT eCW1 ([facility]) [place] [address] [facility] [address] 01/02/2020 12:00:00 AM EDT eCW1 ([facility]) [facility] [place] [address] [facility] [address] 12/05/2019 12:00:00 AM EDT eCW1 ([facility]) [facility] [place] [address] [facility] [address] 11/24/2019 12:00:00 AM EDT eCW1 ([facility]) [facility] [place] [address] [facility] [address] 11/21/2019 12:00:00 AM EDT eCW1 ([facility]) [facility] [place] [address] [facility] [address] 11/14/2019 12:00:00 AM EDT eCW1 ([facility]) [facility] [place] [address] [facility] [address] 11/09/2019 12:00:00 AM EDT eCW1 ([facility]) [facility] Ozzie Ron [address] [place] [address] 11/06/2019 12:00:00 AM EDT eCW1 ([facility]) [facility] [place] [address] [facility] [address] 10/26/2019 12:00:00 AM EDT eCW1 ([facility]) [facility] Ozzie Ron [address] [place] [address] 10/24/2019 12:00:00 AM EDT eCW1 ([facility]) [facility] Jose [address] [place] [address], [place] [address] 10/09/2019 12:00:00 AM EDT eCW1 ([facility]) [facility] Jose [address] [place] [address], [place] [address] 10/06/2019 12:00:00 AM EDT eCW1 ([facility]) [facility] Jose [address] [place] [address], [place] [address] 09/26/2019 12:00:00 AM EST eCW1 ([facility]) [facility] Jose [address] [place] [address], [place] [address] 09/11/2019 12:00:00 AM EST eCW1 ([facility]) [facility] Jose [address] [place] [address], [place] [address] 08/29/2019 12:00:00 AM EST eCW1 ([facility]) [facility] Jose [address] [place] [address], [place] [address] 08/14/2019 12:00:00 AM EST eCW1 ([facility]) [facility] [address] [address] 08/01/2019 12:00:00 AM EST eCW1 ([facility]) [facility] [address] [address] 08/01/2019 12:00:00 AM EST eCW1 ([facility]) [facility] Jose [address] [place] [address], [place] [address] 07/17/2019 12:00:00 AM EST eCW1 ([facility]) [facility] [address] [address] 07/04/2019 12:00:00 AM EST eCW1 ([facility]) Immunizations Vaccine Date Status Description Data Source(s) influenza, recombinant, quadrIvalent,injectable, prese rvative free 07/02/2020 08:43:00 AM EST completed eCW1 ([facility]) influenza, recombinant, quadrIvalent,injectable, prese rvative free 07/02/2020 08:43:00 AM EST completed eCW1 ([facility]) influenza, recombinant, quadrIvalent,injectable, prese rvative free 07/02/2020 08:43:00 AM EST completed eCW1 ([facility]) influenza, recombinant, quadrIvalent,injectable, prese rvative free 07/02/2020 08:43:00 AM EST completed eCW1 ([facility]) influenza, recombinant, quadrIvalent,injectable, prese rvative free 07/02/2020 08:43:00 AM EST completed eCW1 ([facility]) Medications Medication Brand Name Start Date Product Form Dose Route Admi nistrative Instructions Pharmacy Instructions Status Indications Reaction Description Data Source(s) 5-325 mg 08/14/2020 12:00:00 AM EST tablet 42 TAKE ONE TABLET BY MOUTH THREE TIMES A DAY NEEDED MAXIMUM DAILY DOSE = 3 TABLETS TAKE ONE TABLET BY MOUTH THREE TIMES A DAY NEEDED MAXIMUM DAILY DOSE = 3 TABLETS SOLD: 08/14/2020 [facility] Acetaminophen 325 MG / Oxycodone Hydroch loride 5 MG Oral Tablet [Percocet] Percocet 5-325 MG Percocet 5-325 MG 08/14/2020 12:00:00 AM EST 1 .0 {tablet_as_needed} active Percocet 5-32 5 MG eCW1 ([facility]) Acetaminophen 325 MG / Oxycodone Hydroch loride 5 MG Oral Tablet [Percocet] Percocet 5-325 MG Percocet 5-325 MG 08/01/2020 12:00:00 AM EST 1 .0 {tablet_as_needed} active Percocet 5-32 5 MG eCW1 ([facility]) Acetaminophen 325 MG / Oxycodone Hydrochloride 5 MG Or al Tablet 5-325 mg OXYCODONE HCL/ACETAMINOPHEN 08/01/2020 12:00:00 AM EST tablet 42 TAKE ONE TABLET BY MOUTH NEEDED THREE TIMES A DAY MAXIMUM DAILY DOSE = THREE TABLETS TAKE ONE TABLET BY MOUTH NEEDED THREE TIMES A DAY MAXIMUM DAILY DOSE = THREE TABLETS SOLD: 08/01/2020 [facility] Acetaminophen 325 MG / Oxycodone Hydrochloride 5 MG Or al Tablet 5-325 mg OXYCODONE HCL/ACETAMINOPHEN 07/18/2020 12:00:00 AM EST tablet 42 TAKE ONE TABLET BY MOUTH THREE TIMES A DAY MAXIMUM DAILY DOSE = 3 TABLETS TAKE ONE TABLET BY MOUTH THREE TIMES A DAY MAXIMUM DAILY DOSE = 3 TABLETS SOLD: 07/18/2020 [facility] Acetaminophen 325 MG / Oxycodone Hydroch loride 5 MG Oral Tablet [Percocet] Percocet 5-325 MG Percocet 5-325 MG 07/17/2020 12:00:00 AM EST 1 .0 {tablet_as_needed} active Percocet 5-32 5 MG eCW1 ([facility]) 5-325 mg 07/03/2020 12:00:00 AM EST tablet 42 TAKE ONE TABLET BY MOUTH THREE TIMES A DAY NEEDED MAXIMUM DAILY DOSE = THREE TABLETS TAKE ONE TABLET BY MOUTH THREE TIMES A DAY NEEDED MAXIMUM DAILY DOSE = THREE TABLETS SOLD: 07/03/2020 [facility] Acetaminophen 325 MG / Oxycodone Hydroch loride 5 MG Oral Tablet [Percocet] Percocet 5-325 MG Percocet 5-325 MG 07/02/2020 12:00:00 AM EST 1 .0 {tablet_as_needed} active Percocet 5-32 5 MG eCW1 ([facility]) Acetaminophen 325 MG / Oxycodone Hydroch loride 5 MG Oral Tablet [Percocet] Percocet 5-325 MG Percocet 5-325 MG 07/02/2020 12:00:00 AM EST 1 .0 {tablet_as_needed} active Percocet 5-32 5 MG eCW1 ([facility]) 5-325 mg 06/19/2020 12:00:00 AM EST tablet 42 TAKE ONE TABLET BY MOUTH THREE TIMES A DAY MAXIMUM DAILY DOSE = 3 TAKE ONE TABLET BY MOUTH THREE TIMES A D AY MAXIMUM DAILY DOSE = 3 SOLD: 06/19/2020 [facility] Acetaminophen 325 MG / Oxycodone Hydroch loride 5 MG Oral Tablet [Percocet] Percocet 5-325 MG Percocet 5-325 MG 06/18/2020 12:00:00 AM EST 1 .0 {tablet_as_needed} active Percocet 5-32 5 MG eCW1 ([facility]) Acetaminophen 325 MG / Oxycodone Hydroch loride 5 MG Oral Tablet [Percocet] Percocet 5-325 MG Percocet 5-325 MG 06/04/2020 12:00:00 AM EST 1 .0 {tablet_as_needed} active Percocet 5-32 5 MG eCW1 ([facility]) 5-325 mg 06/04/2020 12:00:00 AM EST tablet 42 TAKE ONE TABLET BY MOUTH THREE TIMES A DAY NEEDED MAXIMUM DAILY DOSE = 3 TABLETS TAKE ONE TABLET BY MOUTH THREE TIMES A DAY NEEDED MAXIMUM DAILY DOSE = 3 TABLETS SOLD: 06/06/2020 [facility] Acetaminophen 325 MG / Oxycodone Hydroch loride 5 MG Oral Tablet [Percocet] Percocet 5-325 MG Percocet 5-325 MG 05/24/2020 12:00:00 AM EDT 1 .0 {tablet_as_needed} active Percocet 5-32 5 MG eCW1 ([facility]) Acetaminophen 325 MG / Oxycodone Hydroch loride 5 MG Oral Tablet [Percocet] Percocet 5-325 MG Percocet 5-325 MG 05/24/2020 12:00:00 AM EDT 1 .0 {tablet_as_needed} active Percocet 5-32 5 MG eCW1 ([facility]) 5-325 mg 05/23/2020 12:00:00 AM EDT tablet 42 TAKE ONE TABLET BY MOUTH THREE TIMES A DAY MAXIMUM DAILY DOSE = THREE TABLETS TAKE ONE TABLET BY MOUTH THREE TIMES A DAY MAXIMUM DAILY DOSE = THREE TABLETS SOLD: 05/23/2020 [facility] Acetaminophen 325 MG / Oxycodone Hydroch loride 5 MG Oral Tablet [Percocet] Percocet 5-325 MG Percocet 5-325 MG 05/22/2020 12:00:00 AM EDT 1 .0 {tablet_as_needed} active Percocet 5-32 5 MG eCW1 ([facility]) 5-325 mg 05/08/2020 12:00:00 AM EDT tablet 42 TAKE ONE TABLET BY MOUTH THREE TIMES A DAY NEEDED MAXIMUM DAILY DOSE = 3 TABLETS TAKE ONE TABLET BY MOUTH THREE TIMES A DAY NEEDED MAXIMUM DAILY DOSE = 3 TABLETS SOLD: 05/08/2020 [facility] Acetaminophen 325 MG / Oxycodone Hydroch loride 5 MG Oral Tablet [Percocet] Percocet 5-325 MG Percocet 5-325 MG 05/07/2020 12:00:00 AM EDT 1 .0 {tablet_as_needed} active Percocet 5-32 5 MG W1 ([facility]) 5-325 mg 04/23/2020 12:00:00 AM EDT tablet 42 TAKE ONE TABLET BY MOUTH THREE TIMES A DAY MAXIMUM DAILY DOSE = 3 TAKE ONE TABLET BY MOUTH THREE TIMES A D AY MAXIMUM DAILY DOSE = 3 SOLD: 04/24/2020 [facility] 5-325 mg 04/10/2020 12:00:00 AM EDT tablet 42 TAKE ONE TABLET BY MOUTH THREE TIMES A DAY MAXIMUM DAILY DOSE = 3 TAKE ONE TABLET BY MOUTH THREE TIMES A D AY MAXIMUM DAILY DOSE = 3 SOLD: 04/10/2020 [facility] 5-325 mg 03/27/2020 12:00:00 AM EDT tablet 42 TAKE ONE TABLET BY MOUTH THREE TIMES A DAY MAXIMUM DAILY DOSE = 3 TABLETS TAKE ONE TABLET BY MOUTH THREE TIMES A DAY MAXIMUM DAILY DOSE = 3 TABLETS SOLD: 03/28/2020 [facility] 5-325 mg 03/13/2020 12:00:00 AM EDT tablet 42 TAKE ONE TABLET BY MOUTH THREE TIMES A DAY MAXIMUM DAILY DOSE = 3 TABLETS TAKE ONE TABLET BY MOUTH THREE TIMES A DAY MAXIMUM DAILY DOSE = 3 TABLETS SOLD: 03/13/2020 [facility] 10 mg 03/13/2020 12:00:00 AM EDT tablet 30 TAKE ONE TABLET BY MOUTH EVERY DAY TAKE ONE TABLET BY MOUTH EVERY DAY SOLD: 03/13/2020 [facility] 50 mg 03/13/2020 12:00:00 AM EDT tablet 60 TAKE ONE TABLET BY MOUTH EVERY DAY TAKE ONE TABLET BY MOUTH EVERY DAY SOLD: 03/13/2020 [facility] 600 mg 03/13/2020 12:00:00 AM EDT tablet 90 TAKE ONE TABLET BY MOUTH THREE TIMES A DAY TAKE ONE TABLET BY MOUTH THREE TIMES A DAY SOLD: 03/13/2020 [facility] 5-325 mg 02/27/2020 12:00:00 AM EDT tablet 42 TAKE ONE TABLET BY MOUTH THREE TIMES A DAY MAXIMUM DAILY DOSE = THREE TABLETS TAKE ONE TABLET BY MOUTH THREE TIMES A DAY MAXIMUM DAILY DOSE = THREE TABLETS SOLD: 02/27/2020 [facility] 5-325 mg 02/13/2020 12:00:00 AM EDT tablet 42 TAKE ONE TABLET BY MOUTH THREE TIMES A DAY MAXIMUM DAILY DOSE = THREE TABLETS TAKE ONE TABLET BY MOUTH THREE TIMES A DAY MAXIMUM DAILY DOSE = THREE TABLETS SOLD: 02/13/2020 [facility] Acetaminophen 325 MG / Oxycodone Hydroch loride 5 MG Oral Tablet [Percocet] Percocet 5-325 MG Percocet 5-325 MG 02/13/2020 12:00:00 AM EDT 1 .0 {tablet_as_needed} active Percocet 5-32 5 MG eCW1 ([facility]) 5-325 mg 01/30/2020 12:00:00 AM EDT tablet 42 TAKE ONE TABLET BY MOUTH THREE TIMES A DAY NEEDED * MAXIMUM DAILY DOSE = 3 TAKE ONE TABLET BY MOUTH THREE TIMES A DAY NEEDED * MAXIMUM DAILY DOSE = 3 SOLD: 01/30/2020 [facility] Acetaminophen 325 MG / Oxycodone Hydroch loride 5 MG Oral Tablet [Percocet] Percocet 5-325 MG Percocet 5-325 MG 01/16/2020 12:00:00 AM EDT 1 .0 {tablet_as_needed} active Percocet 5-32 5 MG eCW1 ([facility]) 5-325 mg 01/16/2020 12:00:00 AM EDT tablet 42 TAKE ONE TABLET BY MOUTH THREE TIMES A DAY NEEDED MAXIMUM DAILY DOSE = 3 TAKE ONE TABLET BY MOUTH THREE TIMES A DAY NEEDED MAXIMUM DAILY DOSE = 3 SOLD: 01/16/2020 [facility] 5-325 mg 01/02/2020 12:00:00 AM EDT tablet 42 TAKE ONE TABLET BY MOUTH THREE TIMES A DAY MAXIMUM DAILY DOSE = THREE TABLETS TAKE ONE TABLET BY MOUTH THREE TIMES A DAY MAXIMUM DAILY DOSE = THREE TABLETS SOLD: 01/02/2020 [facility] Acetaminophen 325 MG / Oxycodone Hydroch loride 5 MG Oral Tablet [Percocet] Percocet 5-325 MG Percocet 5-325 MG 01/02/2020 12:00:00 AM EDT 1 .0 {tablet_as_needed} active Percocet 5-32 5 MG eCW1 ([facility]) 5-325 mg 12/19/2019 12:00:00 AM EDT tablet 42 TAKE ONE TABLET BY MOUTH NEEDED THREE TIMES A DAY MAXIMUM DAILY DOSE=3 TAKE ONE TABLET BY MOUTH NEEDED THREE TIMES A DAY MAXIMUM DAILY DOSE=3 SOLD: 12/20/2019 [facility] Acetaminophen 325 MG / Oxycodone Hydroch loride 5 MG Oral Tablet [Percocet] Percocet 5-325 MG Percocet 5-325 MG 12/05/2019 12:00:00 AM EDT active 1 tablet as needed eCW1 ([facility]) 5-325 mg 12/05/2019 12:00:00 AM EDT tablet 42 TAKE ONE TABLET BY MOUTH THREE TIMES A DAY NEEDED MAXIMUM DAILY DOSE = 3 TABLETS TAKE ONE TABLET BY MOUTH THREE TIMES A DAY NEEDED MAXIMUM DAILY DOSE = 3 TABLETS SOLD: 12/05/2019 [facility] Acetaminophen 325 MG / Oxycodone Hydroch loride 5 MG Oral Tablet [Percocet] Percocet 5-325 MG Percocet 5-325 MG 11/21/2019 12:00:00 AM EDT active 1 tablet as needed eCW1 ([facility]) 5-325 mg 11/21/2019 12:00:00 AM EDT tablet 42 TAKE ONE TABLET BY MOUTH THREE TIMES A DAY NEEDED MAXIMUM DAILY DOSE = 3 TABLETS TAKE ONE TABLET BY MOUTH THREE TIMES A DAY NEEDED MAXIMUM DAILY DOSE = 3 TABLETS SOLD: 11/23/2019 [facility] 5-325 mg 11/06/2019 12:00:00 AM EDT tablet 42 TAKE ONE TABLET BY MOUTH THREE TIMES A DAY NEEDED MAXIMUM DAILY DOSE = 3 TAKE ONE TABLET BY MOUTH THREE TIMES A DAY NEEDED MAXIMUM DAILY DOSE = 3 SOLD: 11/07/2019 [facility] Acetaminophen 325 MG / Oxycodone Hydroch loride 5 MG Oral Tablet [Percocet] Percocet 5-325 MG Percocet 5-325 MG 11/06/2019 12:00:00 AM EDT active 1 tablet as needed eCW1 ([facility]) Nebulizer - Nebulizer - 10/26/2019 12:00:00 AM EDT active Nebulizer - eCW1 ([facility]) Nebulizer - Nebulizer - 10/26/2019 12:00:00 AM EDT active Nebulizer - eCW1 ([facility]) Nebulizer - Nebulizer - 10/26/2019 12:00:00 AM EDT active Nebulizer - eCW1 ([facility]) Nebulizer - Nebulizer - 10/26/2019 12:00:00 AM EDT active Nebulizer - eCW1 ([facility]) Nebulizer - Nebulizer - 10/26/2019 12:00:00 AM EDT active Nebulizer - eCW1 ([facility]) Nebulizer - Nebulizer - 10/26/2019 12:00:00 AM EDT active Nebulizer - eCW1 ([facility]) Nebulizer - Nebulizer - 10/26/2019 12:00:00 AM EDT active Nebulizer - eCW1 ([facility]) Nebulizer - Nebulizer - 10/26/2019 12:00:00 AM EDT active Nebulizer - eCW1 ([facility]) Nebulizer - Nebulizer - 10/26/2019 12:00:00 AM EDT active Nebulizer - eCW1 ([facility]) Nebulizer - Nebulizer - 10/26/2019 12:00:00 AM EDT active Nebulizer - eCW1 ([facility]) Nebulizer - Nebulizer - 10/26/2019 12:00:00 AM EDT active Nebulizer - eCW1 ([facility]) Nebulizer - Nebulizer - 10/26/2019 12:00:00 AM EDT active Nebulizer - eCW1 ([facility]) Nebulizer - Nebulizer - 10/26/2019 12:00:00 AM EDT active Nebulizer - eCW1 ([facility]) Nebulizer - Nebulizer - 10/26/2019 12:00:00 AM EDT active Nebulizer - eCW1 ([facility]) Nebulizer - Nebulizer - 10/26/2019 12:00:00 AM EDT active as directed eCW1 ([facility]) 5-325 mg 10/24/2019 12:00:00 AM EDT tablet 42 TAKE ONE TABLET BY MOUTH THREE TIMES A DAY NEEDED MAXIMUM DAILY DOSE = 3 TABLETS TAKE ONE TABLET BY MOUTH THREE TIMES A DAY NEEDED MAXIMUM DAILY DOSE = 3 TABLETS SOLD: 10/25/2019 [facility] Acetaminophen 325 MG / Oxycodone Hydroch loride 5 MG Oral Tablet [Percocet] Percocet 5-325 MG Percocet 5-325 MG 10/24/2019 12:00:00 AM EDT active 1 tablet as needed eCW1 ([facility]) Acetaminophen 325 MG / Oxycodone Hydroch loride 5 MG Oral Tablet [Percocet] Percocet 5-325 MG Percocet 5-325 MG 10/10/2019 12:00:00 AM EDT active 1 tablet as needed eCW1 ([facility]) 5-325 mg 10/10/2019 12:00:00 AM EDT tablet 42 TAKE ONE TABLET BY MOUTH THREE TIMES A DAY NEEDED MAXIMUM DAILY DOSE = 3 TAKE ONE TABLET BY MOUTH THREE TIMES A DAY NEEDED MAXIMUM DAILY DOSE = 3 SOLD: 10/10/2019 [facility] Acetaminophen 325 MG / Oxycodone Hydroch loride 5 MG Oral Tablet [Percocet] Percocet 5-325 MG Percocet 5-325 MG 09/26/2019 12:00:00 AM EST active 1 tablet as needed eCW1 ([facility]) Acetaminophen 325 MG / Oxycodone Hydroch loride 5 MG Oral Tablet [Percocet] Percocet 5-325 MG Percocet 5-325 MG 09/26/2019 12:00:00 AM EST active 1 tablet as needed eCW1 ([facility]) 5-325 mg 09/26/2019 12:00:00 AM EST tablet 42 TAKE ONE TABLET BY MOUTH THREE TIMES A DAY NEEDED MAXIMUM DAILY DOSE = THREE TABLETS TAKE ONE TABLET BY MOUTH THREE TIMES A DAY NEEDED MAXIMUM DAILY DOSE = THREE TABLETS SOLD: 09/26/2019 [facility] Acetaminophen 325 MG / Oxycodone Hydroch loride 5 MG Oral Tablet [Percocet] Percocet 5-325 MG Percocet 5-325 MG 09/12/2019 12:00:00 AM EST active 1 tablet as needed eCW1 ([facility]) 5-325 mg 09/12/2019 12:00:00 AM EST tablet 42 TAKE ONE TABLET BY MOUTH THREE TIMES A DAY MAXIMUM DAILY DOSE = THREE TABLETS TAKE ONE TABLET BY MOUTH THREE TIMES A DAY MAXIMUM DAILY DOSE = THREE TABLETS SOLD: 09/12/2019 [facility] 5-325 mg 08/29/2019 12:00:00 AM EST tablet 42 TAKE ONE TABLET BY MOUTH THREE TIMES A DAY NEEDED MAXIMUM DAILY DOSE = 3 TAKE ONE TABLET BY MOUTH THREE TIMES A DAY NEEDED MAXIMUM DAILY DOSE = 3 SOLD: 08/29/2019 [facility] Acetaminophen 325 MG / Oxycodone Hydroch loride 5 MG Oral Tablet [Percocet] Percocet 5-325 MG Percocet 5-325 MG 08/29/2019 12:00:00 AM EST active 1 tablet as needed eCW1 ([facility]) 5-325 mg 08/14/2019 12:00:00 AM EST tablet 42 TAKE ONE TABLET BY MOUTH THREE TIMES A DAY MAXIMUM DAILY DOSE = THREE TABLETS TAKE ONE TABLET BY MOUTH THREE TIMES A DAY MAXIMUM DAILY DOSE = THREE TABLETS SOLD: 08/15/2019 [facility] Acetaminophen 325 MG / Oxycodone Hydroch loride 5 MG Oral Tablet [Percocet] Percocet 5-325 MG Percocet 5-325 MG 08/14/2019 12:00:00 AM EST active 1 tablet as needed eCW1 ([facility]) 5-325 mg 08/02/2019 12:00:00 AM EST tablet 42 TAKE ONE TABLET BY MOUTH THREE TIMES A DAY NEEDED MAXIMUM DAILY DOSE = 3 TABLETS TAKE ONE TABLET BY MOUTH THREE TIMES A DAY NEEDED MAXIMUM DAILY DOSE = 3 TABLETS SOLD: 08/02/2019 [facility] Acetaminophen 325 MG / Oxycodone Hydroch loride 5 MG Oral Tablet [Percocet] Percocet 5-325 MG Percocet 5-325 MG 08/01/2019 12:00:00 AM EST active 1 tablet as needed eCW1 ([facility]) Acetaminophen 325 MG / Oxycodone Hydroch loride 5 MG Oral Tablet [Percocet] Percocet 5-325 MG Percocet 5-325 MG 08/01/2019 12:00:00 AM EST active 1 tablet as needed eCW1 ([facility]) Acetaminophen 325 MG / Oxycodone Hydroch loride 5 MG Oral Tablet [Percocet] Percocet 5-325 MG Percocet 5-325 MG 07/17/2019 12:00:00 AM EST active 1 tablet as needed eCW1 ([facility]) 5-325 mg 07/17/2019 12:00:00 AM EST tablet 42 TAKE ONE TABLET BY MOUTH THREE TIMES A DAY NEEDED MAXIMUM DAILY DOSE = 3 TABLETS TAKE ONE TABLET BY MOUTH THREE TIMES A DAY NEEDED MAXIMUM DAILY DOSE = 3 TABLETS SOLD: 07/18/2019 [facility] Acetaminophen 325 MG / Oxycodone Hydroch loride 5 MG Oral Tablet [Percocet] Percocet 5-325 MG Percocet 5-325 MG 07/04/2019 12:00:00 AM EST active 1 tablet as needed eCW1 ([facility]) 5-325 mg 07/04/2019 12:00:00 AM EST tablet 42 TAKE ONE TABLET BY MOUTH THREE TIMES A DAY NEEDED MAXIMUM DAILY DOSE = 3 TABLETS TAKE ONE TABLET BY MOUTH THREE TIMES A DAY NEEDED MAXIMUM DAILY DOSE = 3 TABLETS SOLD: 07/04/2019 [facility] 5-325 mg 06/20/2019 12:00:00 AM EST tablet 42 TAKE ONE TABLET BY MOUTH THREE TIMES A DAY MAXIMUM DAILY DOSE = THREE TABLETS TAKE ONE TABLET BY MOUTH THREE TIMES A DAY MAXIMUM DAILY DOSE = THREE TABLETS SOLD: 06/21/2019 [employer] Insurance Providers Payer name Policy type / Coverage type Policy ID Covered democrat ID Covered democrat's relationship to tidwell Policy Tidwell Plan Information [facility] [id number] [facility] O [id number] S [id number] ANSI-Commercial [id number] [facility] [id number] ANSI-Commercial [id number] [facility] U [id number] Spouse [id number] ANSI-Commercial [id number]-6z24-104c-s015-fl2lfv6482oo d4r08i8e-3b92-091e-r334-pi8nfs7122wm ANSI-Commercial 3f3e4e97-x1v9-42k7-fn22-7qy01tku19jg 2r7w0e65-m7n3-94q6-oj05-6rd53omg94aa ANSI-Commercial 76w33vmx-4pif-5679-514v-6lq3otu434d2 30c53egd-3udo-4090-112u-7fh1ung198r1 ANSI-Commercial 77h4150r-c857-39l0-1338-l6i840031i4a 52a9698t-b997-09f3-2415-t1h035451i7j ANSI-Commercial tk13t77x-227t-2o19-k64l-2p0njq89o578 qs55e87u-870j-8s91-p48a-3q3idd21q589 ANSI-Commercial 2783h88t-49mn-9207-0z2z-887wx0rf2550 5559g50c-75en-3523-7r9q-070zt7uj5482 ANSI-Commercial ul81pz5h-4890-59k3-0792-37y85r08s9i3 ow39gf4s-3248-09d0-1632-89x86y74d8r5 ANSI-Commercial 14005p57-k98m-777i-9de8-nr8943sj4272 41346p33-e16y-340c-7vz8-mk0249aj3656 ANSI-Commercial 02s1v8z3-5o28-8h1n-aiue-6003mnl9l196 70z3z0r9-6g60-1b7n-guqx-3181ehb1l753 ANSI-Commercial 4f657z14-yl06-7770-q4aw-r7ex08406ul6 3x879k41-wf33-9240-r9lv-s4ii01355ao4 ANSI-Commercial 6073gz07-3anx-1q94-9424-0jye1oy79n4h 5432ip25-2rjj-5k77-6334-5xla2va44h3j ANSI-Commercial zzkkl7a2-7oeg-00w5-8601-459666v9gg40 tiqop7p7-1ugd-31m0-1145-243751w7cc42 ANSI-Commercial w0120943-7223-0oku-v842-u3z715yg16py o4564180-9260-0lbq-k285-w5e858rz69vj ANSI-Commercial k4o095k7-ao5k-83rw-e54n-h70i397r0t32 c0j794w1-ud6i-85ob-t27b-o24q429d4y43 ANSI-Commercial 3hfo5108-o442-3198-vzi2-91892g51i4a6 1sbx3654-z524-5910-npw7-99219b79b0n6 ANSI-Commercial 1100kupn-7w47-81481w86-9705-2pl8-k159529ds52q 8570jlak-5d58-70138h09-8011-8wb5-g064382ht55e ANSI-Commercial 07c2zk2h-1616-331m-8wk4-n7m9hxxh0qpf 26u3dg4o-3401-565u-8tv6-e1w9wbat4pgl ANSI-Commercial 3yrq85fu-2hv4-55d4-f9hr-m2160j436u8j 7bow89zb-7iw7-36b3-b9sa-w6503t526s1q ANSI-Commercial 9703379c-pt10-1702-1n42-n2i2ua6s1x66 9152064v-bf78-2026-7y79-x7h0cy6y7b66 ANSI-Commercial 937i8507-2230-1z5j-q9or-03h8l4615959 901u0378-7175-2y3d-v7qh-95v7f5681922 ANSI-Commercial 3qvx2s1q-23fy-48rl-22d1-vd6bvo739h33 3lpi2n7g-31fy-81mh-96e8-ay3mxh060v12 ANSI-Commercial 43049sr6-f28d-4331-z614-1d44qz3908j6 88646ih3-b24q-8117-x160-0l59ap7824k2 ANSI-Commercial 6u41917u-o298-11h5-n21a-r20l87sz3015 2d78929p-m480-53h0-q59t-m88f08bo9125 ANSI-Commercial 47si6221-1r32-6ba6-56ns-1c2twu3x2650 45nw2591-6x55-5nh1-81mx-8x6tyz9k8201 ANSI-Commercial 5o18aw0g-j051-00zt-6bom-z080004m253z 7o83zh9k-r929-60pl-0seq-p312818w147p ANSI-Commercial d72qf310-9106-0phv-p41s-e74176u17372 r28gv818-5894-7eev-y37f-r06847o09321 ANSI-Commercial 746800t4-f3d3-4by5-6383-51bb808nm57y 406187j3-r8b8-1ro9-1591-35lz559jd28b ANSI-Commercial b984946d-p52v-2b89-9608-399632207h2o q287928b-o45t-7h66-4516-737557771z0l ANSI-Commercial kr49813s-7074-1m04-bkkz-w20a43nc59vi va03505e-9849-1b43-wmjr-l75r58jv16aw ANSI-Commercial n3p52ch9-00ou-55p6-u1ip-259ea6j14a2q a0u35qh2-35sm-06x6-l3pf-202wy2c73f2c ANSI-Commercial j36x9s2c-lu02-1674-cpav-v5729z7h5p6k z84g7x8l-ox98-4118-pdoj-l7262b0z3y5i ANSI-Commercial 4wbk4l4b-l0ps-0836-a46b-q4u11rl703pb 8mrm6y0z-l8rj-8789-y45z-l7h19wk462kl ANSI-Commercial tmu784a3-x262-9bol-6qw2-y0t06y3t5990 qls932v2-m173-9hfy-2eo3-d7w92p5s5007 ANSI-Commercial c45147d2-7926-817c-4c80-l9k7g448v65d s80054i9-3669-107f-2p18-r8g0b975r34n ANSI-Commercial vl0c71gt-551a-3tx6-8315-2g3310t08324 ii8a68hb-216v-8wn9-2144-2x3705t68229 ANSI-Commercial zt39500a-40v1-0a73-g190-oyt8x45f5sz4 dq34217u-46g6-8k15-s138-uwe9h33i4py1 ANSI-Commercial 4o503am4-875t-79a6-dh2w-7n51xu28zq2u 7b763yd3-199j-71m9-ki7b-9o81tx16fm3t ANSI-Commercial 3foe461q-v955-5968-tz4v-kf9v1vqc877g 7alm741d-j823-5779-kz3o-qo4r3uzk276z [facility] [id number] [facility] [id number] ANSI-Commercial 36h5o9e6-9a5i-90nm-js4b-z53353lox32j 83s6u1u4-9a1p-46nv-zv2b-z40386beh66a ANSI-Commercial 978cp2vo-hcgx-224d-9kv0-r510h89o1t81 019wc5cp-vron-412a-2ho9-c603y46k3l11 ANSI-Commercial rw882d9f-9e60-5k60-j8t7-24v15xrg0188 we748t0x-3u76-7m21-g3x6-38o91zhi9611 ANSI-Commercial 2ao34890-75i7-3nji-7f2s-1q5xr0413bh0 0ey57793-87q0-8gjr-5q5r-8b2cx2204pk9 ANSI-Commercial z0kp7n6t-uie4-2577-749i-05550qgf5840 a5bi1w1w-wsy1-7767-483o-47707nng2199 ANSI-Commercial 3e56usv5-1130-5285-2491-0r9g878mhso7 0f41cmy2-3568-0041-2880-6w5g406foay9 [facility] [id number] [facility] [id number] 1 ANSI-Commercial 94zu53d3-q20z-26ax-u4p9-s98311ddslg3 03tt14k6-m86g-74uv-q0h9-w96606hmxpi1 ANSI-Commercial q84o335w-8353-79d7-5385-00hc0c9297w4 p40y159b-7689-66x7-5976-46er5i3776u7 ANSI-Commercial 8fjhtf48-3o0y-9650-3507-31c6c222503d 5fgzqv66-7f3d-8558-1261-07x2y690990o ANSI-Commercial 207cn023-77xo-03eg-17t9-i4t80p0e4662 212im790-98ph-28qq-41t2-j0z70n3o4825 ANSI-Commercial 5x77329y-3o33-9u1o-q33j-6513e1sa2lrr 5w11073x-4e17-1p8a-y11d-2602d7tg4uef [facility] [id number] [facility] [id number] ANSI-Commercial 4438d0q7-zpwh-91vu-8h1u-8u12lf97g23y 4245x2n4-bfgj-35db-9e7e-1i69na02h73t ANSI-Commercial 59y12qn4-02z9-4028-e63d-5544w9t76393 09w60ss2-35o3-1381-a47i-4111n7f62726 ANSI-Commercial e702s448-ow21-70bl-6x23-2w3fj5700bjs i689n348-gs01-25pq-4w80-4u1ar4177iqg ANSI-Commercial 62205uc7-87j7-9u1f-q7b6-3c2140a717aj 52700ok8-55i3-7q8a-t9s6-0n4389z256ve ANSI-Commercial 934h9qe8-r1c1-3d9e-405o-5l09p7a6qh59 842v0mk4-x5s4-4w2y-000w-5g03q2v8px13 ANSI-Commercial 221515v0-a151-899j-r94r-31s0i0v85fv6 041034f0-e988-794s-u62v-78o2h8h03pk3 ANSI-Commercial jdv4gw65-76ur-1567-849s-149513cl0148 mtz5jg45-76ta-8826-499y-979436is4973 ANSI-Commercial h3379s49-79sd-3896-p775-44yh4j9hx3dj y2260p20-60ip-4737-k869-69zl1r6oe9hf ANSI-Commercial 4h6k1j5x-46r6-0wz7-5055-jh14167260ri 0l8a1o8a-86d8-1yu0-1372-ga35816142ez ANSI-Commercial 60w9qb86-9v37-1x39-pj01-zndm9nt19t41 91t4jf33-8e10-3b01-wm09-hfgg3hv65l75 UMR F [id number] SPOUSE [id number] UMR F [id number] SPOUSE [id number] 1 ANSI-Commercial 51edb545-130o-5kg7-sr5v-5k69a04e2w93 85bnx769-259e-6rf2-qo3c-0o98q36f8y59 ANSI-Commercial s3017838-gw2f-30sa-4jj3-lly176dn914h i7838038-fv8d-39fc-2ep3-pei859bf749g UMR F [id number] SPOUSE [id number] [place] / UMR F [id number] SPOUSE [id number] UMR [facility] [id number] [facility] [id number] UMR U [id number] Spouse [id number] [facility] [id number] HU2 [id number] [facility]OM[facility] PPO O [id number] P [id number] [facility] [id number] SP [id number] Surgeries/Procedures Procedure Description Date Indications Data Source(s) Immunization: Flublok Quadrivalent (18 years & older) 0.5mL IM (Influenza) 07/02/2020 12:00:00 AM EST eCW1 ([facility]) Results ID Date Data Source [id number] 06/12/2020 12:00:00 AM EST [place] Name Value Range Interpretation Code Description Data Lucero rce(s) Supporting Document(s) SARS coronavirus 2 Ag [place] This lab was ordered by [facility] and reported by [facility]. Procedure Social History Code Duration Value Status Description Data Source(s ) Smoking 10/06/2019 12:00:00 AM EDT Current Smoker completed Curre nt Smoker eCW1 ([facility]) Smoking 10/06/2019 12:00:00 AM EDT Current Smoker completed Curre nt Smoker eCW1 ([facility]) Smoking 10/06/2019 12:00:00 AM EDT Current Smoker completed Curre nt Smoker eCW1 ([facility]) Smoking 10/06/2019 12:00:00 AM EDT Current Smoker completed Curre nt Smoker eCW1 ([facility]) Smoking 10/06/2019 12:00:00 AM EDT Current Smoker completed Curre nt Smoker eCW1 ([facility]) Smoking 10/06/2019 12:00:00 AM EDT Current Smoker completed Curre nt Smoker eCW1 ([facility]) Smoking 10/06/2019 12:00:00 AM EDT Current Smoker completed Curre nt Smoker eCW1 ([facility]) Smoking 10/06/2019 12:00:00 AM EDT Current Smoker completed Curre nt Smoker eCW1 ([facility]) Smoking 10/06/2019 12:00:00 AM EDT Current Smoker completed Curre nt Smoker eCW1 ([facility]) Smoking 10/06/2019 12:00:00 AM EDT Current Smoker completed Curre nt Smoker eCW1 ([facility]) Smoking 10/06/2019 12:00:00 AM EDT Current Smoker completed Curre nt Smoker eCW1 ([facility]) Smoking 10/06/2019 12:00:00 AM EDT Current Smoker completed Curre nt Smoker eCW1 ([facility]) Smoking 10/06/2019 12:00:00 AM EDT Current Smoker completed Curre nt Smoker eCW1 ([facility]) Smoking 10/06/2019 12:00:00 AM EDT Current Smoker completed Curre nt Smoker eCW1 ([facility]) Vital Signs ID Date Data Source UNK Name Value Range Interpretation Code Description Data Source(s) Body mass index (BMI) [Ratio] 22.5 kg/m2 22.5 k g/m2 [facility]) Body height 68 [in_i] 68 [in_i] MEDENT ([facility]) 5'8" Body weight 148.00 [lb_av] 148.00 [lb_av] MEDEN T ([facility], [facility]) Body temperature 98.0 [degF] 98.0 [degF] MEDENT ([facility]) Oxygen saturation in Arterial blood by Pulse oximetry 99 % 99 % [facility] ([facility]) Respiratory rate 16 /min 16 /min [facility]) Heart rate 72 /min 72 /min MEDENT ([facility]) Diastolic blood pressure 90 mm[Hg] 90 mm[Hg] MEDENT ([facility]) Systolic blood pressure 135 mm[Hg] 135 mm[Hg] M EDENT ([facility], [facility]) Diastolic blood pressure 77 mm[Hg] 77 mm[Hg] eCW1 ([facility]) Systolic blood pressure 121 mm[Hg] 121 mm[Hg] e CW1 ([facility]) Body temperature 98 [degF] 98 [degF] eCW1 ([facility]) Respiratory rate 20 /min 20 /min eCW1 ([facility]) Heart rate 81 /min 81 /min eCW1 ([facility]) Body mass index (BMI) [Ratio] 26.47 kg/m2 26.47 kg/m2 eCW1 ([facility]) Body height [in_us] eCW1 ([facility]) Body weight Measured 169 [lb_av] 169 [lb_av] eC W1 ([facility]) Patient Treatment Plan of Care Planned Activity Planned Date Details Description Data Source (s) Acetaminophen 325 MG / Oxycodone Hydrochloride 5 MG Or al Tablet [Percocet] 08/14/2020 12:00:00 AM EST eCW1 ([facility]) Acetaminophen 325 MG / Oxycodone Hydrochloride 5 MG Or al Tablet [Percocet] 08/01/2020 12:00:00 AM EST eCW1 ([facility]) Acetaminophen 325 MG / Oxycodone Hydrochloride 5 MG Or al Tablet [Percocet] 07/17/2020 12:00:00 AM EST eCW1 ([facility]) Acetaminophen 325 MG / Oxycodone Hydrochloride 5 MG Or al Tablet [Percocet] 07/02/2020 12:00:00 AM EST eCW1 ([facility]) Acetaminophen 325 MG / Oxycodone Hydrochloride 5 MG Or al Tablet [Percocet] 07/02/2020 12:00:00 AM EST eCW1 ([facility]) Acetaminophen 325 MG / Oxycodone Hydrochloride 5 MG Or al Tablet [Percocet] 06/18/2020 12:00:00 AM EST eCW1 ([facility]) Acetaminophen 325 MG / Oxycodone Hydrochloride 5 MG Or al Tablet [Percocet] 06/04/2020 12:00:00 AM EST eCW1 ([facility]) Acetaminophen 325 MG / Oxycodone Hydrochloride 5 MG Or al Tablet [Percocet] 05/24/2020 12:00:00 AM EDT eCW1 ([facility]) Acetaminophen 325 MG / Oxycodone Hydrochloride 5 MG Or al Tablet [Percocet] 05/24/2020 12:00:00 AM EDT eCW1 ([facility]) Acetaminophen 325 MG / Oxycodone Hydrochloride 5 MG Or al Tablet [Percocet] 05/22/2020 12:00:00 AM EDT eCW1 ([facility]) Acetaminophen 325 MG / Oxycodone Hydrochloride 5 MG Or al Tablet [Percocet] 05/07/2020 12:00:00 AM EDT eCW1 ([facility]) Acetaminophen 325 MG / Oxycodone Hydrochloride 5 MG Or al Tablet [Percocet] 02/13/2020 12:00:00 AM EDT eCW1 ([facility]) Acetaminophen 325 MG / Oxycodone Hydrochloride 5 MG Or al Tablet [Percocet] 01/16/2020 12:00:00 AM EDT eCW1 ([facility]) Acetaminophen 325 MG / Oxycodone Hydrochloride 5 MG Or al Tablet [Percocet] 01/02/2020 12:00:00 AM EDT eCW1 ([facility]) Acetaminophen 325 MG / Oxycodone Hydrochloride 5 MG Or al Tablet [Percocet] 12/05/2019 12:00:00 AM EDT eCW1 ([facility]) Acetaminophen 325 MG / Oxycodone Hydrochloride 5 MG Or al Tablet [Percocet] 11/21/2019 12:00:00 AM EDT eCW1 ([facility]) Acetaminophen 325 MG / Oxycodone Hydrochloride 5 MG Or al Tablet [Percocet] 11/06/2019 12:00:00 AM EDT eCW1 ([facility]) Nebulizer - 10/26/2019 12:00:00 AM EDT e CW1 ([facility]) Nebulizer - 10/26/2019 12:00:00 AM EDT e CW1 ([facility]) Nebulizer - 10/26/2019 12:00:00 AM EDT e CW1 ([facility]) Nebulizer - 10/26/2019 12:00:00 AM EDT e CW1 ([facility]) Nebulizer - 10/26/2019 12:00:00 AM EDT e CW1 ([facility]) Nebulizer - 10/26/2019 12:00:00 AM EDT e CW1 ([facility]) Nebulizer - 10/26/2019 12:00:00 AM EDT e CW1 ([facility]) Nebulizer - 10/26/2019 12:00:00 AM EDT e CW1 ([facility]) Nebulizer - 10/26/2019 12:00:00 AM EDT e CW1 ([facility]) Nebulizer - 10/26/2019 12:00:00 AM EDT e CW1 ([facility]) Nebulizer - 10/26/2019 12:00:00 AM EDT e CW1 ([facility]) Nebulizer - 10/26/2019 12:00:00 AM EDT e CW1 ([facility]) Nebulizer - 10/26/2019 12:00:00 AM EDT e CW1 ([facility]) Nebulizer - 10/26/2019 12:00:00 AM EDT e CW1 ([facility]) Nebulizer - 10/26/2019 12:00:00 AM EDT e CW1 ([facility]) Acetaminophen 325 MG / Oxycodone Hydrochloride 5 MG Or al Tablet [Percocet] 10/24/2019 12:00:00 AM EDT eCW1 ([facility]) Acetaminophen 325 MG / Oxycodone Hydrochloride 5 MG Or al Tablet [Percocet] 10/10/2019 12:00:00 AM EDT eCW1 ([facility]) Acetaminophen 325 MG / Oxycodone Hydrochloride 5 MG Or al Tablet [Percocet] 09/26/2019 12:00:00 AM EST eCW1 ([facility]) Acetaminophen 325 MG / Oxycodone Hydrochloride 5 MG Or al Tablet [Percocet] 09/26/2019 12:00:00 AM EST eCW1 ([facility]) Acetaminophen 325 MG / Oxycodone Hydrochloride 5 MG Or al Tablet [Percocet] 09/12/2019 12:00:00 AM EST eCW1 ([facility]) Acetaminophen 325 MG / Oxycodone Hydrochloride 5 MG Or al Tablet [Percocet] 08/29/2019 12:00:00 AM EST eCW1 ([facility]) Acetaminophen 325 MG / Oxycodone Hydrochloride 5 MG Or al Tablet [Percocet] 08/14/2019 12:00:00 AM EST eCW1 ([facility]) Acetaminophen 325 MG / Oxycodone Hydrochloride 5 MG Or al Tablet [Percocet] 08/01/2019 12:00:00 AM EST eCW1 ([facility]) Acetaminophen 325 MG / Oxycodone Hydrochloride 5 MG Or al Tablet [Percocet] 08/01/2019 12:00:00 AM EST eCW1 ([facility]) Acetaminophen 325 MG / Oxycodone Hydrochloride 5 MG Or al Tablet [Percocet] 07/17/2019 12:00:00 AM EST eCW1 ([facility]) Acetaminophen 325 MG / Oxycodone Hydrochloride 5 MG Or al Tablet [Percocet] 07/04/2019 12:00:00 AM EST eCW1 ([facility])
[2020-08-21] MEDS: COMBIVENT RESPIMAT 100-20MCG INHALER 4GM INH SCH ×3 (13:15→13:55)
[2020-08-21] MEDS ORDERED: dexameTHASONE 20MG/5ML VIAL (J1100 PER 1MG) IV ONE (13:15)
[2020-08-21 13:32] LABS: BASO # 0.1 10^3/uL (0.0-0.2); BASO % 0.5 % (0.0-1.0); EOS # 0.2 10^3/uL (0.0-0.5); EOS % 1.8 % (0.0-3.0); HEMOGLOBIN 13.9 g/dl (12.0-15.5); LYMPH # 3.3 10^3/uL (1.5-5.0); LYMPH % 24.5 % (24.0-44.0); MEAN CORPUSCULAR HGB CONC 33.9 g/dl (32.0-36.5); MEAN CORPUSCULAR VOLUME 97.4 fl (80.0-96.0); MONO # 1.1 10^3/uL (0.0-0.8); MONO % 8.5 % (0.0-5.0); NEUTROPHILS # 8.5 10^3/uL (1.5-8.5); NEUTROPHILS % 64.1 % (36.0-66.0); PLATELET COUNT, AUTOMATED 355 10^3/uL (150-450); RED BLOOD COUNT 4.21 10^6/uL (4.00-5.40); WHITE BLOOD COUNT 13.3 10^3/uL (4.0-10.0)
--- OUTSIDE RECORDS SUMMARY | 2020-08-21 13:36 | CCD ---
Author Author [facility] Organization [facility] Address Unknown Phone Unavailable Care Team Providers Care Account Financial Manager Name Role Phone Ana GONZALEZ Unavailable Unavailable LETTIERE, Ana HUGHES Unavailable Unavailable [...] Unavailable LETTIERE, Ana HUGHES Unavailable Unavailable LETTIERE, Aan HUGHES Unavailable Unavailable LETTIERE, Ana HUGHES Unavailable [...] is protected by Article 27-F of the [facility] Public Health law. If you continue you may have access to information: Regarding HIV / AIDS; Provided by facilities licensed or operated by the [facility] Office of Mental Health; or Provided by the [facility] Office for People With Developmental Disabilities. If such information is present, then the following [facility] mandated warning applies: This information has been [...] lisinopril Lisinopril Lisinopril ACEI Cough Active eCW1 ([facility]) Drug allergy Sulfur Drug allergy hives Active eCW1 ([facility]) Encounters Encounter Providers Location Date Indications Data Source(s ) Unknown [address] [facility] [address] 08/14/2020 12:00:00 AM EST eCW1 ([facility]) Unknown [address] [facility] [address] 07/31/2020 12:00:00 AM EST eCW1 ([facility]) Unknown [address] [facility] [place] [address] 07/12/2020 12:00:00 AM EST eCW1 ([facility]) Unknown [address] [facility] [place] [address] 07/02/2020 12:00:00 AM EST eCW1 ([facility]) Outpatient [address] [facility] Y [address] 07/02/2020 12:00:00 AM EST eCW1 ([facility]) Unknown [address] [facility] [place] [address] 06/18/2020 12:00:00 AM EST eCW1 ([facility]) Outpatient Attender: INGRIS garcía 06/12/2020 08:25:00 AM EST MEDENT ([facility]) Unknown [address] [facility] [place] [address] 06/04/2020 12:00:00 AM EST eCW1 ([facility]) Unknown [address] [facility] [place] [address] 05/24/2020 12:00:00 AM EDT eCW1 ([facility]) Unknown [address] [facility] [place] [address] 05/23/2020 12:00:00 AM EDT eCW1 ([facility]) Unknown [address] [facility] [place] [address] 05/21/2020 12:00:00 AM EDT eCW1 ([facility]) Unknown [address] [facility] [place] [address] 05/07/2020 12:00:00 AM EDT eCW1 ([facility]) Unknown [address] [facility] [address] 02/13/2020 12:00:00 AM EDT eCW1 ([facility]) [facility] [place] [address] [facility] [address] 02/07/2020 12:00:00 AM EDT eCW1 ([facility]) Unknown [address] [facility] [address] 01/15/2020 12:00:00 AM EDT eCW1 ([facility]) Unknown [address] [facility] [address] 01/02/2020 12:00:00 AM EDT eCW1 ([facility]) [facility] Jose [address] [facility] [address] 12/05/2019 12:00:00 AM EDT eCW1 ([facility]) [facility] Jose [address] [facility] [address] 11/24/2019 12:00:00 AM EDT eCW1 ([facility]) [facility] [place] [address] [facility] [address] 11/21/2019 12:00:00 AM EDT eCW1 ([facility]) [facility] Jose [address] [facility] [address] 11/14/2019 12:00:00 AM EDT eCW1 ([facility]) [facility] Jose [address] [facility] [address] 11/09/2019 12:00:00 AM EDT eCW1 ([facility]) [facility] Ozzie Ron [address] [place] [address] 11/06/2019 12:00:00 AM EDT eCW1 ([facility]) [facility] Jose [address] [facility] [address] 10/26/2019 12:00:00 AM EDT eCW1 ([facility]) [facility] Ozzie Ron [address] [place] [address] 10/24/2019 12:00:00 AM EDT eCW1 ([facility]) [facility] Jose [address] [place] [address], [place] [address] 10/09/2019 12:00:00 AM EDT eCW1 ([facility]) [facility] Jose [address] [place] [address], [place] [address] 10/06/2019 12:00:00 AM EDT eCW1 ([facility]) [facility] Jose [address] [place] [address], [place] [address] 09/26/2019 12:00:00 AM EST eCW1 ([facility]) [facility] Jose [address] [place] [address], [place] [address] 09/11/2019 12:00:00 AM EST eCW1 ([facility]) [facility] Jose [address] [place] [address], [place] [address] 08/29/2019 12:00:00 AM EST eCW1 ([facility]) [facility] Jose [address] [place] [address], [place] [address] 08/14/2019 12:00:00 AM EST eCW1 ([facility]) [facility] [address] [address] 08/01/2019 12:00:00 AM EST eCW1 ([facility]) [facility] [address] [address] 08/01/2019 12:00:00 AM EST eCW1 ([facility]) [facility] Jose [address] [place] [address], [place] [address] 07/17/2019 12:00:00 AM EST eCW1 ([facility]) [facility] [address] [address] 07/04/2019 12:00:00 AM EST eCW1 ([facility]) Immunizations Vaccine Date Status Description Data Source(s) influenza, recombinant, quadrIvalent,injectable, prese rvative free 07/02/2020 08:43:00 AM EST completed eCW1 ([facility]) influenza, recombinant, quadrIvalent,injectable, prese rvative free 07/02/2020 08:43:00 AM EST completed eCW1 ([facility]) influenza, recombinant, quadrIvalent,injectable, prese rvative free 07/02/2020 08:43:00 AM EST completed eCW1 ([facility]) influenza, recombinant, quadrIvalent,injectable, prese rvative free 07/02/2020 08:43:00 AM EST completed eCW1 ([facility]) influenza, recombinant, quadrIvalent,injectable, prese rvative free 07/02/2020 08:43:00 AM EST completed eCW1 ([facility]) Medications Medication Brand Name Start Date Product [...] active Percocet 5-32 5 MG eCW1 ([facility]) Acetaminophen 325 MG / Oxycodone Hydroch loride 5 MG Oral Tablet [Percocet] Percocet 5-325 MG Percocet 5-325 MG 08/01/2020 12:00:00 AM EST 1 .0 {tablet_as_needed} active Percocet 5-32 5 MG eCW1 ([facility]) Acetaminophen 325 MG / Oxycodone Hydrochloride 5 [...] active Percocet 5-32 5 MG eCW1 ([facility]) 5-325 mg 07/03/2020 12:00:00 AM EST tablet [...] active Percocet 5-32 5 MG eCW1 ([facility]) Acetaminophen 325 MG / Oxycodone Hydroch loride 5 MG Oral Tablet [Percocet] Percocet 5-325 MG Percocet 5-325 MG 07/02/2020 12:00:00 AM EST 1 .0 {tablet_as_needed} active Percocet 5-32 5 MG eCW1 ([facility]) 5-325 mg 06/19/2020 12:00:00 AM EST tablet 42 TAKE ONE TABLET BY MOUTH THREE TIMES A DAY MAXIMUM DAILY DOSE = 3 TAKE ONE TABLET BY MOUTH THREE TIMES A D AY MAXIMUM DAILY DOSE = 3 SOLD: 06/19/2020 [facility] Acetaminophen 325 MG / Oxycodone Hydroch loride 5 MG Oral Tablet [Percocet] Percocet 5-325 MG Percocet 5-325 MG 06/18/2020 12:00:00 AM EST 1 .0 {tablet_as_needed} active Percocet 5-32 5 MG eCW1 ([facility]) Acetaminophen 325 MG / Oxycodone Hydroch loride 5 MG Oral Tablet [Percocet] Percocet 5-325 MG Percocet 5-325 MG 06/04/2020 12:00:00 AM EST 1 .0 {tablet_as_needed} active Percocet 5-32 5 MG eCW1 ([facility]) 5-325 mg 06/04/2020 12:00:00 AM EST tablet 42 TAKE ONE TABLET BY MOUTH THREE TIMES A DAY NEEDED MAXIMUM DAILY DOSE = 3 TABLETS TAKE ONE TABLET BY MOUTH THREE TIMES A DAY NEEDED MAXIMUM DAILY DOSE = 3 TABLETS SOLD: 06/06/2020 [facility] Acetaminophen 325 MG / Oxycodone Hydroch loride 5 MG Oral Tablet [Percocet] Percocet 5-325 MG Percocet 5-325 MG 05/24/2020 12:00:00 AM EDT 1 .0 {tablet_as_needed} active Percocet 5-32 5 MG eCW1 ([facility]) Acetaminophen 325 MG / Oxycodone Hydroch loride 5 MG Oral Tablet [Percocet] Percocet 5-325 MG Percocet 5-325 MG 05/24/2020 12:00:00 AM EDT 1 .0 {tablet_as_needed} active Percocet 5-32 5 MG eCW1 ([facility]) 5-325 mg 05/23/2020 12:00:00 AM EDT tablet [...] active Percocet 5-32 5 MG eCW1 ([facility]) 5-325 mg 05/08/2020 12:00:00 AM EDT tablet [...] active Percocet 5-32 5 MG W1 ([facility]) 5-325 mg 04/23/2020 12:00:00 AM EDT tablet [...] active Percocet 5-32 5 MG eCW1 ([facility]) 5-325 mg 01/30/2020 12:00:00 AM EDT tablet [...] active Percocet 5-32 5 MG eCW1 ([facility]) 5-325 mg 01/16/2020 12:00:00 AM EDT tablet [...] active Percocet 5-32 5 MG eCW1 ([facility]) 5-325 mg 12/19/2019 12:00:00 AM EDT tablet [...] EDT active 1 tablet as needed eCW1 ([facility]) 5-325 mg 12/05/2019 12:00:00 AM EDT tablet [...] EDT active 1 tablet as needed eCW1 ([facility]) 5-325 mg 11/21/2019 12:00:00 AM EDT tablet [...] EDT active 1 tablet as needed eCW1 ([facility]) Nebulizer - Nebulizer - 10/26/2019 12:00:00 AM EDT active Nebulizer - eCW1 ([facility]) Nebulizer - Nebulizer - 10/26/2019 12:00:00 AM EDT active Nebulizer - eCW1 ([facility]) Nebulizer - Nebulizer - 10/26/2019 12:00:00 AM EDT active Nebulizer - eCW1 ([facility]) Nebulizer - Nebulizer - 10/26/2019 12:00:00 AM EDT active Nebulizer - eCW1 ([facility]) Nebulizer - Nebulizer - 10/26/2019 12:00:00 AM EDT active Nebulizer - eCW1 ([facility]) Nebulizer - Nebulizer - 10/26/2019 12:00:00 AM EDT active Nebulizer - eCW1 ([facility]) Nebulizer - Nebulizer - 10/26/2019 12:00:00 AM EDT active Nebulizer - eCW1 ([facility]) Nebulizer - Nebulizer - 10/26/2019 12:00:00 AM EDT active Nebulizer - eCW1 ([facility]) Nebulizer - Nebulizer - 10/26/2019 12:00:00 AM EDT active Nebulizer - eCW1 ([facility]) Nebulizer - Nebulizer - 10/26/2019 12:00:00 AM EDT active Nebulizer - eCW1 ([facility]) Nebulizer - Nebulizer - 10/26/2019 12:00:00 AM EDT active Nebulizer - eCW1 ([facility]) Nebulizer - Nebulizer - 10/26/2019 12:00:00 AM EDT active Nebulizer - eCW1 ([facility]) Nebulizer - Nebulizer - 10/26/2019 12:00:00 AM EDT active Nebulizer - eCW1 ([facility]) Nebulizer - Nebulizer - 10/26/2019 12:00:00 AM EDT active Nebulizer - eCW1 ([facility]) Nebulizer - Nebulizer - 10/26/2019 12:00:00 AM EDT active as directed eCW1 ([facility]) 5-325 mg 10/24/2019 12:00:00 AM EDT tablet 42 TAKE ONE TABLET BY MOUTH THREE TIMES A DAY NEEDED MAXIMUM DAILY DOSE = 3 TABLETS TAKE ONE TABLET BY MOUTH THREE TIMES A DAY NEEDED MAXIMUM DAILY DOSE = 3 TABLETS SOLD: 10/25/2019 [facility] Acetaminophen 325 MG / Oxycodone Hydroch loride 5 MG Oral Tablet [Percocet] Percocet 5-325 MG Percocet 5-325 MG 10/24/2019 12:00:00 AM EDT active 1 tablet as needed eCW1 ([facility]) Acetaminophen 325 MG / Oxycodone Hydroch loride 5 MG Oral Tablet [Percocet] Percocet 5-325 MG Percocet 5-325 MG 10/10/2019 12:00:00 AM EDT active 1 tablet as needed eCW1 ([facility]) 5-325 mg 10/10/2019 12:00:00 AM EDT tablet [...] EST active 1 tablet as needed eCW1 ([facility]) Acetaminophen 325 MG / Oxycodone Hydroch loride 5 MG Oral Tablet [Percocet] Percocet 5-325 MG Percocet 5-325 MG 09/26/2019 12:00:00 AM EST active 1 tablet as needed eCW1 ([facility]) 5-325 mg 09/26/2019 12:00:00 AM EST tablet [...] EST active 1 tablet as needed eCW1 ([facility]) 5-325 mg 09/12/2019 12:00:00 AM EST tablet [...] EST active 1 tablet as needed eCW1 ([facility]) 5-325 mg 08/14/2019 12:00:00 AM EST tablet [...] EST active 1 tablet as needed eCW1 ([facility]) 5-325 mg 08/02/2019 12:00:00 AM EST tablet [...] EST active 1 tablet as needed eCW1 ([facility]) Acetaminophen 325 MG / Oxycodone Hydroch loride 5 MG Oral Tablet [Percocet] Percocet 5-325 MG Percocet 5-325 MG 08/01/2019 12:00:00 AM EST active 1 tablet as needed eCW1 ([facility]) Acetaminophen 325 MG / Oxycodone Hydroch loride 5 MG Oral Tablet [Percocet] Percocet 5-325 MG Percocet 5-325 MG 07/17/2019 12:00:00 AM EST active 1 tablet as needed eCW1 ([facility]) 5-325 mg 07/17/2019 12:00:00 AM EST tablet 42 TAKE ONE TABLET BY MOUTH THREE TIMES A DAY NEEDED MAXIMUM DAILY DOSE = 3 TABLETS TAKE ONE TABLET BY MOUTH THREE TIMES A DAY NEEDED MAXIMUM DAILY DOSE = 3 TABLETS SOLD: 07/18/2019 [facility] Acetaminophen 325 MG / Oxycodone Hydroch loride 5 MG Oral Tablet [Percocet] Percocet 5-325 MG Percocet 5-325 MG 07/04/2019 12:00:00 AM EST active 1 tablet as needed eCW1 ([facility]) 5-325 mg 07/04/2019 12:00:00 AM EST tablet [...] DAILY DOSE = THREE TABLETS SOLD: 06/21/2019 [facility] Insurance Providers Payer name Policy type / Coverage type Policy ID Covered constitution party ID Covered constitution party's relationship to tidwell Policy Tidwell Plan Information [facility] [id number] [id number] [facility] O [id number] S [id number] ANSI-Commercial [id number] [facility] [id number] [id number] ANSI-Commercial [id number] [facility] U [id number] Spouse [id number] ANSI-Commercial [id number] ANSI-Commercial [id number]-z5t8-87t6-eu63-4th91uic51rf 5w3z9n46-n5w3-59u2-uc39-2ok16biq66pf ANSI-Commercial 25p25dnf-8tvk-3598-976x-3at8neu812l9 44b29fto-1dzu-4713-409s-8vm0tdw763v7 ANSI-Commercial [id number]-w543-10u2-2460-[id number] [id number]-u869-89s0-5074-[id number] ANSI-Commercial [id number]-411y-8u03-s33q-3n6hnc82f054 hr81h65l-945v-4r42-e38k-8c5unm33l336 ANSI-Commercial [id number]-[id number] 7499d33m-38gx-7189-3r1h-222lp2ua9475 ANSI-Commercial hr58pt8w-7621-12a4-9906-73j20z18y5y5 od72tn2s-0687-05k2-6814-02g58o37k1z3 ANSI-Commercial [id number]-m10b-632z-2dq2-gv6369lz0815 38724u14-o35v-132n-9cl1-hd8897mu8958 ANSI-Commercial 67z5h8m8-2n17-7c2w-umsv-5209zmr8y925 21x6u3t0-4a24-8e0o-baus-0930afl1v021 ANSI-Commercial 5d197q55-vh35-0903-v2bn-i6pk09912gm9 2p506n10-lk89-8914-h3py-r7zv23875qk6 ANSI-Commercial 4307hi96-7unu-3l92-3834-3asu0el47j8x 3410ar28-9emp-7e19-2782-0gqr6iv31k2t ANSI-Commercial tljmg4j4-1eln-45o0-2105-004979q0as59 ewrna9f3-0tqo-02x6-9197-548511d6wi18 ANSI-Commercial p5038482-0128-2jtf-q409-y6v813hv94og h3161235-3605-6bxb-h273-r6f684xn11ty ANSI-Commercial m6c442c1-uw0s-29nx-f68y-z79n532n3x88 y6j740e4-rx1f-63nn-r27m-y68x688j6k15 ANSI-Commercial 2uqz9241-z232-0501-skl5-24430t52h4e3 2ugx6883-y765-9693-gxz9-10885u38l5h4 ANSI-Commercial 5483dtuy-8a42-76973e18-3974-0ey3-w376874bx73j 0790lwox-8k75-88012v00-7557-4ud3-r872877rq78z ANSI-Commercial 53a7mh2u-9326-311x-7uo4-k8h2yvdq0kba 62y8zb9v-1459-287j-5el3-z9l9hszv5bar ANSI-Commercial 7orf71qh-8wc5-08m0-r7sg-s3266r327v8c 7vsv83rd-0fp8-34w6-d6fa-u3168c553y5g ANSI-Commercial 0596413h-tw96-3780-8b02-s7d7xd3k8j56 1666378q-ne56-5128-3y11-n4p3wx1s8o26 ANSI-Commercial 512y0894-6056-5s1y-r5mk-26x8l5809223 121p2470-3243-3i8h-d9zy-49c5d3188778 ANSI-Commercial 4evv4n2s-00de-72qi-10u8-ij8xct797p75 4sfn6i9u-24cc-30jg-54q8-sa4iiz335s29 ANSI-Commercial 47106vs4-n54a-9340-e799-3a74sk8904p3 03188vn2-e86o-0205-v988-2g20wo3295j8 ANSI-Commercial 2s32526b-w462-89b0-a38t-s64x82ms1713 3g18036a-o293-62p2-k22n-b05d09gh9479 ANSI-Commercial 69bp2927-0s09-7pl5-50an-6j4ihk5e0753 78jy1665-6b16-7af5-34dr-1c2hcm1b3992 ANSI-Commercial 5b97ub1b-k266-45ip-1lwb-z926971h586m 0s01fi0e-y440-46gk-1ydt-d522409r125l ANSI-Commercial g25vw453-5858-5axu-p26r-y17286t70875 y79at816-4546-4xoj-h65q-g92827t56484 ANSI-Commercial 063130t8-n5g1-1gn5-1871-02sg357ge10m 586516s1-y8m8-8rk2-7998-86td663wu36k ANSI-Commercial r995619h-y20l-7l70-9275-770171338y2q z420364c-o46k-3u45-2376-885531179q1k ANSI-Commercial zw06632z-1094-7e31-hefn-e00e15ym07ey bj84481c-5089-6s95-firx-i44x47ir37rx ANSI-Commercial y8g21bq2-00rs-05v6-h3ye-614sq5a72c6t j8i23im9-23mw-81g3-n4wi-096pe4j91g8p ANSI-Commercial d10w1h3c-ac45-7896-ocfo-e6171z6i4l3e g91b2q5a-gg94-9979-jjeg-z7860e6t0h7m ANSI-Commercial 2ojd1c9j-y6wg-6615-r72o-d9i49mg627nn 4uha8i4v-b5bo-6879-k20p-c3w39wh388ag ANSI-Commercial dqo346o5-d646-6tkn-4ut5-v3k34w1q3014 lua695e9-r063-3zmh-3xn0-d4b92m6d1709 ANSI-Commercial j90883y4-5161-875e-6o16-x8i1i744v42o f73187c6-6389-781m-8q41-u7q8f345y26c ANSI-Commercial rv0z85ti-135b-3sn6-0829-5e0934l31497 fx6j83sz-844e-5af4-3652-6q4552o49533 ANSI-Commercial hg05876f-43d0-9q87-n603-car2n06q6qz3 zi43112x-31e1-6v47-s327-ngw5a72t2zj6 ANSI-Commercial 6m244yj1-011g-66z7-xz5q-6h93jo80jb5s 9k362xn3-205o-27q5-mc2i-0s45dv82tv1r ANSI-Commercial 7zkl858g-s760-0836-zs0z-he3o6vlv166j 8fsr959f-s209-8645-ac0v-vu4x4fcw575y [facility] [id number] [facility] [id number] ANSI-Commercial 07d2d3r7-7b2e-01ji-rd5o-x72799cnh84j 93d0f5b6-8n2p-84kc-we6a-d45775osj26v ANSI-Commercial 317yo2qx-ojus-731x-2vc3-r407c80x0b13 122xx0jn-sbma-157g-9et4-d844i98n4i15 ANSI-Commercial fz886i0g-6t38-9g62-i5n0-53a34tmc9233 vq650r7j-8s00-8s95-a8b2-55n98tmn0006 ANSI-Commercial 0nm07747-51w5-2odz-6u2v-3o6ho0249es8 9jl61063-28e5-8ihy-8q0h-3z7jq3599xm0 ANSI-Commercial s5gx6b1s-lvp4-2424-653u-35099odz7062 o9ek7t5j-kem8-5829-110i-14155ogv0749 ANSI-Commercial 0s82foi4-5413-3857-5951-8i2j319juen0 4o65rjn2-8018-8694-1128-3k9c183cfjj9 [facility] [id number] [facility] [id number] ANSI-Commercial 80jx28g1-b58i-88op-g1u0-u82682pojmz1 69nx27l3-h86x-96bf-j1s0-t86258vygkf7 ANSI-Commercial q60h834o-6025-92y5-5430-14dg8m7196x1 h90n346q-7363-89w1-1629-77td6c2493j8 ANSI-Commercial 7vfasi98-7v4j-7180-6362-99u6i874768l 8fxkll18-1q0q-6911-3275-83l6t522676b ANSI-Commercial 322sn330-08eo-60lk-94e0-g5t97n5l4715 866cn045-56bd-51as-81x6-t9y81w8c5071 ANSI-Commercial 4s09321b-9t48-3q9j-n29o-4917e6fd4qpt 8r34113e-3i22-8o1h-t59n-6279c8kn5sho [facility] [id number] [facility] [id number] ANSI-Commercial 3373o7l0-ucat-56xy-1e0n-2e04bf58l47y 8205l2a1-bpzg-57fp-7d9n-2j13xh15r52l ANSI-Commercial 43w80rs2-95q7-1621-e37x-6076m1m36305 38x63wg3-41d3-4932-g90v-6573k2g82789 ANSI-Commercial e650k424-rr56-17kn-5o15-4l5sa4368zui p310s008-sc88-34wk-4l01-6r8hj4754lyk ANSI-Commercial 66116qw6-76s4-3p4e-v2p4-6w5901q382jp 29807jn3-23u4-1u0i-s1v7-2r5037q924pf ANSI-Commercial 340o7ma9-x2z9-0m5g-028p-4b45t0t8tn70 634q7jj4-l8k4-3a0l-918u-3e82r0y4is60 ANSI-Commercial 979796r3-u699-681g-s31r-18o4d2m68to9 [id number] ANSI-Commercial [id number] ANSI-Commercial [id number] ANSI-Commercial [id number] ANSI-Commercial [id number] UMR F [id number] SPOUSE [id number] 1 UMR F [id number] SPOUSE [id number] 1 ANSI-Commercial [id number] ANSI-Commercial [id number] UMR F [id number] SPOUSE [id number] [place] / UMR F [id number] SPOUSE [id number] UMR [facility] [id number] [facility] [id number] UMR U [id number] Spouse [id number] POM[facility] [id number] HU2 [id number] POMCO PPO O [id number] P [id number] POMCO [id number] SP [id number] Surgeries/Procedures Procedure Description Date Indications Data Source(s) Immunization: Flublok Quadrivalent (18 years & older) 0.5mL IM (Influenza) 07/02/2020 12:00:00 AM EST eCW1 ([facility]) Results ID Date Data Source [id number] 06/12/2020 12:00:00 AM EST [facility] Name Value Range Interpretation Code Description Data Lucero rce(s) Supporting Document(s) SARS coronavirus 2 Ag [facility] This lab was ordered by [facility] and reported by [facility]. Procedure Social History Code Duration Value Status Description Data Source(s ) Smoking 10/06/2019 12:00:00 AM EDT Current Smoker completed Curre nt Smoker eCW1 ([facility]) Smoking 10/06/2019 12:00:00 AM EDT Current Smoker completed Curre nt Smoker eCW1 ([facility]) Smoking 10/06/2019 12:00:00 AM EDT Current Smoker completed Curre nt Smoker eCW1 ([facility]) Smoking 10/06/2019 12:00:00 AM EDT Current Smoker completed Curre nt Smoker eCW1 ([facility]) Smoking 10/06/2019 12:00:00 AM EDT Current Smoker completed Curre nt Smoker eCW1 ([facility]) Smoking 10/06/2019 12:00:00 AM EDT Current Smoker completed Curre nt Smoker eCW1 ([facility]) Smoking 10/06/2019 12:00:00 AM EDT Current Smoker completed Curre nt Smoker eCW1 ([facility]) Smoking 10/06/2019 12:00:00 AM EDT Current Smoker completed Curre nt Smoker eCW1 ([facility]) Smoking 10/06/2019 12:00:00 AM EDT Current Smoker completed Curre nt Smoker eCW1 ([facility]) Smoking 10/06/2019 12:00:00 AM EDT Current Smoker completed Curre nt Smoker eCW1 ([facility]) Smoking 10/06/2019 12:00:00 AM EDT Current Smoker completed Curre nt Smoker eCW1 ([facility]) Smoking 10/06/2019 12:00:00 AM EDT Current Smoker completed Curre nt Smoker eCW1 ([facility]) Smoking 10/06/2019 12:00:00 AM EDT Current Smoker completed Curre nt Smoker eCW1 ([facility]) Smoking 10/06/2019 12:00:00 AM EDT Current Smoker completed Curre nt Smoker eCW1 ([facility]) Vital Signs ID Date Data Source UNK Name Value Range Interpretation Code Description Data Source(s) Body mass index (BMI) [Ratio] 22.5 kg/m2 22.5 k g/m2 [facility] ([facility], [facility]) Body height 68 [in_i] 68 [in_i] MEDENT ([facility]) 5'8" Body weight 148.00 [lb_av] 148.00 [lb_av] MEDEN T ([facility], [facility]) Body temperature 98.0 [degF] 98.0 [degF] MEDENT ([facility]) Oxygen saturation in Arterial blood by Pulse oximetry 99 % 99 % [facility] ([facility]) Respiratory rate 16 /min 16 /min [facility] ( [facility]) Heart rate 72 /min 72 /min MEDENT ([facility]) Diastolic blood pressure 90 mm[Hg] 90 mm[Hg] MEDENT ([facility]) Systolic blood pressure 135 mm[Hg] 135 mm[Hg] M EDENT ([facility], [facility]) Diastolic blood pressure 77 mm[Hg] 77 mm[Hg] eCW1 ([facility]) Systolic blood pressure 121 mm[Hg] 121 mm[Hg] [facility] [facility]) Body temperature 98 [degF] 98 [degF] eCW1 ([facility]) Respiratory rate 20 /min 20 /min eCW1 ([facility]) Heart rate 81 /min 81 /min eCW1 ([facility]) Body mass index (BMI) [Ratio] 26.47 kg/m2 26.47 kg/m2 eCW1 ([facility]) Body height [in_us] eCW1 ([facility]) Body weight Measured 169 [lb_av] 169 [lb_av] eC W1 ([facility]) Patient Treatment Plan of Care Planned Activity Planned Date Details Description Data Source (s) Acetaminophen 325 MG / Oxycodone Hydrochloride 5 MG Or al Tablet [Percocet] 08/14/2020 12:00:00 AM EST eCW1 ([facility]) Acetaminophen 325 MG / Oxycodone Hydrochloride 5 MG Or al Tablet [Percocet] 08/01/2020 12:00:00 AM EST eCW1 ([facility]) Acetaminophen 325 MG / Oxycodone Hydrochloride 5 MG Or al Tablet [Percocet] 07/17/2020 12:00:00 AM EST eCW1 ([facility]) Acetaminophen 325 MG / Oxycodone Hydrochloride 5 MG Or al Tablet [Percocet] 07/02/2020 12:00:00 AM EST eCW1 ([facility]) Acetaminophen 325 MG / Oxycodone Hydrochloride 5 MG Or al Tablet [Percocet] 07/02/2020 12:00:00 AM EST eCW1 ([facility]) Acetaminophen 325 MG / Oxycodone Hydrochloride 5 MG Or al Tablet [Percocet] 06/18/2020 12:00:00 AM EST eCW1 ([facility]) Acetaminophen 325 MG / Oxycodone Hydrochloride 5 MG Or al Tablet [Percocet] 06/04/2020 12:00:00 AM EST eCW1 ([facility]) Acetaminophen 325 MG / Oxycodone Hydrochloride 5 MG Or al Tablet [Percocet] 05/24/2020 12:00:00 AM EDT eCW1 ([facility]) Acetaminophen 325 MG / Oxycodone Hydrochloride 5 MG Or al Tablet [Percocet] 05/24/2020 12:00:00 AM EDT eCW1 ([facility]) Acetaminophen 325 MG / Oxycodone Hydrochloride 5 MG Or al Tablet [Percocet] 05/22/2020 12:00:00 AM EDT eCW1 ([facility]) Acetaminophen 325 MG / Oxycodone Hydrochloride 5 MG Or al Tablet [Percocet] 05/07/2020 12:00:00 AM EDT eCW1 ([facility]) Acetaminophen 325 MG / Oxycodone Hydrochloride 5 MG Or al Tablet [Percocet] 02/13/2020 12:00:00 AM EDT eCW1 ([facility]) Acetaminophen 325 MG / Oxycodone Hydrochloride 5 MG Or al Tablet [Percocet] 01/16/2020 12:00:00 AM EDT eCW1 ([facility]) Acetaminophen 325 MG / Oxycodone Hydrochloride 5 MG Or al Tablet [Percocet] 01/02/2020 12:00:00 AM EDT eCW1 ([facility]) Acetaminophen 325 MG / Oxycodone Hydrochloride 5 MG Or al Tablet [Percocet] 12/05/2019 12:00:00 AM EDT eCW1 ([facility]) Acetaminophen 325 MG / Oxycodone Hydrochloride 5 MG Or al Tablet [Percocet] 11/21/2019 12:00:00 AM EDT eCW1 ([facility]) Acetaminophen 325 MG / Oxycodone Hydrochloride 5 MG Or al Tablet [Percocet] 11/06/2019 12:00:00 AM EDT eCW1 ([facility]) Nebulizer - 10/26/2019 12:00:00 AM EDT e CW1 ([facility]) Nebulizer - 10/26/2019 12:00:00 AM EDT e CW1 ([facility]) Nebulizer - 10/26/2019 12:00:00 AM EDT e CW1 ([facility]) Nebulizer - 10/26/2019 12:00:00 AM EDT e CW1 ([facility]) Nebulizer - 10/26/2019 12:00:00 AM EDT e CW1 ([facility]) Nebulizer - 10/26/2019 12:00:00 AM EDT e CW1 ([facility]) Nebulizer - 10/26/2019 12:00:00 AM EDT e CW1 ([facility]) Nebulizer - 10/26/2019 12:00:00 AM EDT e CW1 ([facility]) Nebulizer - 10/26/2019 12:00:00 AM EDT e CW1 ([facility]) Nebulizer - 10/26/2019 12:00:00 AM EDT e CW1 ([facility]) Nebulizer - 10/26/2019 12:00:00 AM EDT e CW1 ([facility]) Nebulizer - 10/26/2019 12:00:00 AM EDT e CW1 ([facility]) Nebulizer - 10/26/2019 12:00:00 AM EDT e CW1 ([facility]) Nebulizer - 10/26/2019 12:00:00 AM EDT e CW1 ([facility]) Nebulizer - 10/26/2019 12:00:00 AM EDT e CW1 ([facility]) Acetaminophen 325 MG / Oxycodone Hydrochloride 5 MG Or al Tablet [Percocet] 10/24/2019 12:00:00 AM EDT eCW1 ([facility]) Acetaminophen 325 MG / Oxycodone Hydrochloride 5 MG Or al Tablet [Percocet] 10/10/2019 12:00:00 AM EDT eCW1 ([facility]) Acetaminophen 325 MG / Oxycodone Hydrochloride 5 MG Or al Tablet [Percocet] 09/26/2019 12:00:00 AM EST eCW1 ([facility]) Acetaminophen 325 MG / Oxycodone Hydrochloride 5 MG Or al Tablet [Percocet] 09/26/2019 12:00:00 AM EST eCW1 ([facility]) Acetaminophen 325 MG / Oxycodone Hydrochloride 5 MG Or al Tablet [Percocet] 09/12/2019 12:00:00 AM EST eCW1 ([facility]) Acetaminophen 325 MG / Oxycodone Hydrochloride 5 MG Or al Tablet [Percocet] 08/29/2019 12:00:00 AM EST eCW1 ([facility]) Acetaminophen 325 MG / Oxycodone Hydrochloride 5 MG Or al Tablet [Percocet] 08/14/2019 12:00:00 AM EST eCW1 ([facility]) Acetaminophen 325 MG / Oxycodone Hydrochloride 5 MG Or al Tablet [Percocet] 08/01/2019 12:00:00 AM EST eCW1 ([facility]) Acetaminophen 325 MG / Oxycodone Hydrochloride 5 MG Or al Tablet [Percocet] 08/01/2019 12:00:00 AM EST eCW1 ([facility]) Acetaminophen 325 MG / Oxycodone Hydrochloride 5 MG Or al Tablet [Percocet] 07/17/2019 12:00:00 AM EST eCW1 ([facility]) Acetaminophen 325 MG / Oxycodone Hydrochloride 5 MG Or al Tablet [Percocet] 07/04/2019 12:00:00 AM EST eCW1 ([facility])
--- NOTE | 2020-08-21 13:44 | REP ---
INDICATION: CHEST PAIN. COMPARISON: Comparison chest x-ray 04/05/2016. TECHNIQUE: Portable upright AP chest radiograph. FINDINGS: The lungs are well inflated and free of infiltrate. Pleural angles are sharp. Heart size is normal. Pulmonary vasculature is not increased. Monitoring electrodes are visible. IMPRESSION: No active disease. <Electronically signed by Jose Pimentel > 08/21/20 [id number]
[2020-08-21 13:56] LABS: INR 1.59; PROTHROMBIN TIME 19.3 SECONDS (12.5-14.3)
[2020-08-21 14:02] LABS: BLOOD UREA NITROGEN 8 MG/DL (7-18); CALCIUM LEVEL 9.3 MG/DL (8.5-10.1); CARBON DIOXIDE LEVEL 27 MEQ/L (21-32); CHLORIDE LEVEL 105 MEQ/L (98-107); CK-MB VALUE MASS 1.1 NG/ML (<3.6); CPK CREATINE PHOSPHOKINASE 66 U/L (26-192); CREATININE FOR GFR 0.88 MG/DL (0.55-1.30); GLOMERULAR FILTRATION RATE > 60.0 (>58); GLUCOSE, FASTING 96 MG/DL (70-100); MB/CK RELATIVE INDEX 1.67 (< OR =4); POTASSIUM SERUM 4.2 MEQ/L (3.5-5.1); SODIUM LEVEL 138 MEQ/L (136-145); TROPONIN I < 0.02 NG/ML (< 0.10)
[2020-08-21 14:09] LABS: ALBUMIN 3.5 GM/DL (3.2-5.2); BILIRUBIN,DIRECT 0.1 MG/DL (0.0-0.2); BILIRUBIN,TOTAL 0.3 MG/DL (0.2-1.0); THYROID STIMULATING HORMONE 2.38 uIU/ML (0.358-3.740); TOTAL PROTEIN 7.1 GM/DL (6.4-8.2)
[2020-08-21 14:14] LABS: RSV AMPLIFICATION NEGATIVE (NEGATIVE)
[2020-08-21] MEDS ORDERED: ISOVUE-370 76% 100ML VIAL As Ordered ONE (14:31)
--- NOTE | 2020-08-21 14:54 | ECGEPIP ---
[facility] - ED Test Date: 2020-08-21 Pat Name: GAIL CALDERON Department: Room: - Gender: Female [employer]: rowdy : [id number] Requested By: KAYLYNN Lira Order Number: [id number] Reading MD: Kirsten Aiken Measurements Intervals [place] Rate: 75 P: 63 DC: 148 QRS: 0 QRSD: 94 T: 17 QT: 384 QTc: 428 Interpretive Statements Normal sinus rhythm INCREASED RATE 01/10/17 Electronically Signed on 08-21-2020 14:54:36 EST by Kirsten Aiken
--- NOTE | 2020-08-21 15:24 | REP ---
INDICATION: chest pain. COMPARISON: Comparison chest CT study 28 February 2016.. TECHNIQUE: Contrast dose: 75 ML of Isovue [address] technique: Helical scanning is acquired and overlapping 1.5 mm and contiguous 3 mm axial images are reformatted. In addition, maximum intensity projection and multiplanar re-formation images are generated in sagittal and coronal imaging projections. FINDINGS: There is good opacification in the pulmonary arterial tree. There is no evidence of vessel cut off or filling defect to suggest pulmonary embolus. Homogeneous opacity is seen in the thoracic aorta. There is no evidence of aneurysm or dissection. Lung window settings demonstrate no evidence of infiltrate, mass, or atelectasis. No pleural or pericardial effusion is seen. No hilar or mediastinal mass or adenopathy is observed. In the upper abdomen, a tiny accessory splenule and a very small hepatic cysts are seen. Normal adrenal glands. IMPRESSION: No CT evidence of pulmonary embolus. No active cardiopulmonary disease. <Electronically signed by Jose Pimentel > 08/21/20 [id number]
[2020-08-21] MEDS ORDERED: PRED20TA PO (15:58)
[2020-08-21] MEDS ORDERED: COMBAER6 INH (15:58)
[2020-08-21 16:31] VITALS: BP 118/72
== END 2020-08-21 16:41 | disposition home or self-care (01) ==
LOC: M ED 12:48
DX: J44.1 Chronic obstructive pulmonary disease with (acute) exacerbation (principal); I10 Essential (primary) hypertension; Z86.711 Personal history of pulmonary embolism; D68.2 Hereditary deficiency of other clotting factors; F17.200 Nicotine dependence, unspecified, uncomplicated; Z88.2 Allergy status to sulfonamides; Z79.899 Other long term (current) drug therapy; Z79.51 Long term (current) use of inhaled steroids; Z79.01 Long term (current) use of anticoagulants
CPT/HCPCS: 36415; 71045; 71275; 80048; 80076; 82550; 82553; 83880; 84443; 84484; 85025; 85610; 87040; 87631; 93005; 93041; 94640; 94664; 94760; 96374; 99285; J1100; Q9967

== ENCOUNTER → 2021-04-29 | Outpatient (REF) | payer OTHER ==
[~2021-04-29] MED LIST changes: +COMBAER6 INH; +GABA-283 PO; -GABA-845 PO; +PRED20TA PO
[2021-04-29 14:40] LABS: HEMATOCRIT 44.9 % (36.0-47.0); HEMOGLOBIN 15.3 g/dl (12.0-15.5); MEAN CORPUSCULAR HEMOGLOBIN 32.9 pg (27.0-33.0); MEAN CORPUSCULAR HGB CONC 34.1 g/dl (32.0-36.5); MEAN CORPUSCULAR VOLUME 96.6 fl (80.0-96.0); PLATELET COUNT, AUTOMATED 397 10^3/uL (150-450); RED BLOOD COUNT 4.65 10^6/uL (4.00-5.40)
[2021-04-29 18:14] LABS: FREE T4 0.92 NG/DL (0.76-1.46); THYROID STIMULATING HORMONE 0.917 uIU/ML (0.358-3.740)
== END ==
LOC: M SFHCCLAY 11:31
PROVIDERS: ATTEND Family Medicine
DX: R53.83 Other fatigue (principal)

== ENCOUNTER → 2021-09-26 | Outpatient (CLI) | payer OTHER ==
[~2021-09-26] MED LIST changes: -CEFD1CAP8 PO; +CEFD300C41 PO; +LOSA50TA28 PO; -LOSA50TA88 PO
== END ==
LOC: M SOG 10:28
PROVIDERS: ATTEND Orthopaedic Surgery Adult Reconstructive Orthopaedic Surgery
DX: M16.0 Bilateral primary osteoarthritis of hip (principal)

== ENCOUNTER → 2021-10-08 | Outpatient (CLI) | payer OTHER ==
[~2021-10-08] MED LIST changes: +BUPIVACAINE HCL 0.5% 30 ML VIAL As Ordered ONE; +ISOVUE-300 61% 50ML VIAL As Ordered ONE; +LIDOCAINE 1% MDV 20ML VIAL As Ordered ONE; +methylPREDNISolone 80MG/ML SUSP 1ML VIAL (J1040) As Ordered ONE
== END ==
LOC: M RADPRO 13:09
PROVIDERS: ATTEND Orthopaedic Surgery Adult Reconstructive Orthopaedic Surgery
DX: M25.551 Pain in right hip (principal)
CPT/HCPCS: 20610; 77002; J1040; Q9967

== ENCOUNTER → 2022-01-14 | Outpatient (CLI) | payer OTHER ==
[~2022-01-14] MED LIST changes: -BUPIVACAINE HCL 0.5% 30 ML VIAL As Ordered ONE; -ISOVUE-300 61% 50ML VIAL As Ordered ONE; -LIDOCAINE 1% MDV 20ML VIAL As Ordered ONE; -methylPREDNISolone 80MG/ML SUSP 1ML VIAL (J1040) As Ordered ONE
== END ==
LOC: M SOG 09:13
PROVIDERS: ATTEND Orthopaedic Surgery Adult Reconstructive Orthopaedic Surgery
DX: M54.17 Radiculopathy, lumbosacral region (principal); S62.609A Fracture of unspecified phalanx of unspecified finger, initial encounter for closed fracture; X58.XXXA Exposure to other specified factors, initial encounter; Y92.9 Unspecified place or not applicable; M41.87 Other forms of scoliosis, lumbosacral region

== ENCOUNTER → 2022-07-08 | Outpatient (REF) | payer OTHER | LOC: M SFHCCLAY 10:31 | PROVIDERS: ATTEND Nurse Practitioner Family | DX: Z53.20 Procedure and treatment not carried out because of patient's decision for unspecified reasons (principal) ==

== ENCOUNTER → 2022-09-25 | Outpatient (REF) | payer OTHER | LOC: M SFHCCLAY 10:37 | PROVIDERS: ATTEND Physician Assistant | DX: J02.9 Acute pharyngitis, unspecified (principal) ==

== ENCOUNTER 2023-06-30 12:13 | Observation (INO) | payer OTHER ==
[~2023-06-30] VITALS: Ht 172.7 cm; Wt 67.3 kg
[~2023-06-30 12:13] MED LIST changes: +CEFD1CAP9 PO; -CEFD300C41 PO; -GABA-283 PO; +GABA-284 PO
[2023-06-30 13:40] LABS: HEMATOCRIT 41.7 % (36.0-47.0); HEMOGLOBIN 14.9 g/dl (12.0-15.5); MEAN CORPUSCULAR HGB CONC 35.7 g/dl (32.0-36.5); MEAN CORPUSCULAR VOLUME 95.2 fl (80.0-96.0); PLATELET COUNT, AUTOMATED 400 10^3/uL (150-450); RED BLOOD COUNT 4.38 10^6/uL (4.00-5.40); WHITE BLOOD COUNT 19.6 10^3/uL (4.0-10.0)
[2023-06-30 14:07] LABS: ATYPICAL LYMPH 6 % (0-5); LYMPHOCYTES 16 % (16-44); MONOCYTES 10 % (0-5); NEUTROPHILS 68 % (28-66)
[2023-06-30 14:08] LABS: PLATELET ESTIMATE INCREASED (NORMAL); POLYCHROMASIA 1+
[2023-06-30 14:10] LABS: LIPASE 21 U/L (12-53)
[2023-06-30 14:11] LABS: RSV AMPLIFICATION NEGATIVE (NEGATIVE)
[2023-06-30 14:12] LABS: ALBUMIN 3.6 G/DL (3.2-5.2); ALKALINE PHOSPHATASE 134 U/L (46-116); ALT/SGPT 13 U/L (7.0-40); AST/SGOT 13 U/L (<34); BILIRUBIN,DIRECT 0.2 MG/DL (<0.4); BILIRUBIN,TOTAL 0.6 MG/DL (0.3-1.2); BLOOD UREA NITROGEN 6 MG/DL (9-23); CALCIUM LEVEL 9.7 MG/DL (8.5-10.1); CARBON DIOXIDE LEVEL 28 MMOL/L (20-31); CHLORIDE LEVEL 107 MMOL/L (98-107); CREATININE FOR GFR 0.77 MG/DL (0.55-1.30); GLOMERULAR FILTRATION RATE > 60.0 (>51); GLUCOSE, FASTING 85 MG/DL (60-100); POTASSIUM SERUM 4.2 MMOL/L (3.5-5.1); SODIUM LEVEL 143 MMOL/L (136-145); TOTAL PROTEIN 6.7 G/DL (5.7-8.2)
[2023-06-30] MEDS ORDERED: MORPHINE 4 MG/ML 1ML VIAL IV ONE (14:25)
[2023-06-30] MEDS ORDERED: ONDANSETRON 4MG 2ML VIAL IV ONE ×2 (14:25→16:10)
[2023-06-30 14:35] LABS: CK-MB VALUE MASS < 1.0 NG/ML (<3.6)
[2023-06-30 14:39] LABS: CPK CREATINE PHOSPHOKINASE 45 U/L (34-145); MB/CK RELATIVE INDEX 2.22 (< OR =4)
[2023-06-30] MEDS ORDERED: PIPERACILLIN/TAZOBACTAM SOD 3.375 GM in D5W MINI-BAG PLUS 50 ML IV ONE (16:10)
[2023-06-30] MEDS ORDERED: NS 1,000 ML IV ONE (16:10)
[2023-06-30] MEDS ORDERED: MORPHINE 2 MG/ML 1ML VIAL IV ONE (16:10)
[2023-06-30] MEDS ORDERED: ISOVUE-370 76% 100ML VIAL As Ordered ONE (16:16)
[2023-06-30] MEDS ORDERED: NICOTINE 21MG/24HR 1 EA TRANSDERMAL TD ONE (18:30)
[2023-06-30] MEDS ORDERED: PANTOPRAZOLE 40MG VIAL IV ONE (18:30)
[2023-06-30 19:03] LABS: MONO REFLEX EBV COMP NEGATIVE (NEGATIVE)
[2023-06-30] MEDS: HYDROMORPHONE HCL 0.5 MG/ 0.5 ML SYRINGE IV PRN (20:24)
[2023-06-30] MEDS ORDERED: OXYC1TAB23 PO (22:02)
[2023-06-30] MEDS ORDERED: SPIR1CAP INH (22:02)
[2023-06-30] MEDS ORDERED: ALBU8.5H INH (22:02)
[2023-06-30] MEDS ORDERED: OYST500T92 PO (22:03)
[2023-06-30] MEDS ORDERED: HOME MED LIST COMPLETE! XX SCH (22:05)
[2023-06-30] MEDS: NS 1,000 ML IV SCH (22:27)
[2023-06-30] MEDS ORDERED: PERCOCET 5MG/325MG TAB PO PRN (22:35)
[2023-06-30] MEDS ORDERED: ALBUTEROL 90 MCG/ACT 8GM HFA INHALER INH PRN (22:35)
[2023-07-01] MEDS: HYDROMORPHONE HCL 0.5 MG/ 0.5 ML SYRINGE IV PRN (04:44)
[2023-07-01] MEDS: SUCRALFATE SUSP 1GM/10ML UD PO SCH ×3 (06:29→12:00)
[2023-07-01] MEDS: NS 1,000 ML IV SCH (06:30)
[2023-07-01 06:59] LABS: HEMATOCRIT 39.1 % (36.0-47.0); HEMOGLOBIN 13.6 g/dl (12.0-15.5); MEAN CORPUSCULAR HEMOGLOBIN 33.7 pg (27.0-33.0); MEAN CORPUSCULAR HGB CONC 34.8 g/dl (32.0-36.5); MEAN CORPUSCULAR VOLUME 96.8 fl (80.0-96.0); PLATELET COUNT, AUTOMATED 362 10^3/uL (150-450); RED BLOOD COUNT 4.04 10^6/uL (4.00-5.40); WHITE BLOOD COUNT 13.1 10^3/uL (4.0-10.0)
[2023-07-01] MEDS ORDERED: PANTOPRAZOLE 40MG VIAL IV SCH (07:00)
[2023-07-01 07:27] LABS: BLOOD UREA NITROGEN 6 MG/DL (9-23); CALCIUM LEVEL 8.7 MG/DL (8.5-10.1); CARBON DIOXIDE LEVEL 24 MMOL/L (20-31); CHLORIDE LEVEL 110 MMOL/L (98-107); CREATININE FOR GFR 0.75 MG/DL (0.55-1.30); GLOMERULAR FILTRATION RATE > 60.0 (>51); GLUCOSE, FASTING 123 MG/DL (60-100); SODIUM LEVEL 142 MMOL/L (136-145)
[2023-07-01] MEDS ORDERED: TIOTROPIUM INHALER/CAPSULE (SPIRIVA) INH SCH (08:00)
[2023-07-01] MEDS ORDERED: CALCIUM/VITAMIN D 500 MG TAB PO SCH (09:00)
[2023-07-01] MEDS ORDERED: GABAPENTIN 300 MG CAP PO SCH (09:00)
[2023-07-01] MEDS ORDERED: RIVAROXABAN 10MG TAB (XARELTO) PO SCH (09:00)
[2023-07-01 09:15] LABS: ERYTHROCYTE SEDIMENTATION RATE 14 mm/hr (0-30)
[2023-07-01] MEDS ORDERED: PROT20TA11 PO (11:38)
[2023-07-01] MEDS ORDERED: CARA1TAB6 PO (11:38)
[2023-07-01] MEDS ORDERED: METOCLOPRAMIDE INJ 10MG/2ML VIAL IV SCH (12:00)
[2023-07-01] MEDS ORDERED: ONDA4TAB6 PO (12:19)
[2023-07-01] MEDS ORDERED: PANT40TA29 PO (12:19)
[2023-07-01 13:39] VITALS: BP 138/83; TEMP 99.1; O2SAT 97
[2023-07-02 15:08] LABS: EBV VIRAL CAPSID AG IgG >600.0 U/mL (0.0-17.9); EBV VIRAL CAPSID AG IgM <36.0 U/mL (0.0-35.9)
== END 2023-07-01 13:36 | disposition home or self-care (01) ==
LOC: M ED 12:13 → M ED INP 12:14
PROVIDERS: ADMIT Internal Medicine; ATTEND Internal Medicine
DX: R10.11 Right upper quadrant pain (principal); R11.2 Nausea with vomiting, unspecified; D72.829 Elevated white blood cell count, unspecified; D68.2 Hereditary deficiency of other clotting factors; K21.9 Gastro-esophageal reflux disease without esophagitis; J43.9 Emphysema, unspecified; M79.2 Neuralgia and neuritis, unspecified; F17.210 Nicotine dependence, cigarettes, uncomplicated; Z86.711 Personal history of pulmonary embolism; R12 Heartburn; R06.02 Shortness of breath; K83.8 Other specified diseases of biliary tract; R07.9 Chest pain, unspecified; M54.50 Low back pain, unspecified; Z88.2 Allergy status to sulfonamides; Z79.899 Other long term (current) drug therapy; Z79.01 Long term (current) use of anticoagulants; Z82.49 Family history of ischemic heart disease and other diseases of the circulatory system; Z82.3 Family history of stroke; Z83.3 Family history of diabetes mellitus; Z81.8 Family history of other mental and behavioral disorders
CPT/HCPCS: 36415; 71046; 74177; 74181; 76705; 80048; 80076; 81001; 82550; 82553; 83605; 83690; 84484; 85025; 85027; 85652; 86140; 86308; 86664; 86665; 87040; 87086; 87631; 93005; 94640; 96361; 96374; 96375; 96376; 99285; C9113; J1170; J2405; J2543; Q9967

== ENCOUNTER 2023-08-02 11:23 | Day surgery (SDC) | payer OTHER ==
[~2023-08-02] VITALS: Ht 172.7 cm; Wt 67.0 kg
[~2023-08-02 11:23] MED LIST changes: +ALBU8.5H INH; +CARA1TAB6 PO; +ONDA4TAB6 PO; +OXYC1TAB23 PO; +OYST500T92 PO; +PANT40TA29 PO; +PROT20TA11 PO; +SPIR1CAP INH
[2023-08-02] MEDS ORDERED: propofoL 200 MG/20 ML VIAL As Ordered ONE (12:04)
[2023-08-02] MEDS ORDERED: LIDOCAINE 2% 100MG/5ML SDV (FOR ANES.) As Ordered ONE (12:05)
[2023-08-02] MEDS ORDERED: GLYCOPYRROLATE INJ 0.2 MG/ML 2 ML VIAL As Ordered ONE (12:05)
[2023-08-02] MEDS ORDERED: LR 1,000 ML IV SCH (12:10)
[2023-08-02] MEDS ORDERED: PROM25TA12 PO (12:13)
[2023-08-02] MEDS ORDERED: ONDANSETRON 4MG 2ML VIAL IV ONE (13:15)
[2023-08-02 13:45] VITALS: BP 147/79; TEMP 97.1; O2SAT 100
== END 2023-08-02 13:55 | disposition home or self-care (01) ==
LOC: M SDC 11:23
PROVIDERS: ATTEND Surgery
DX: R10.13 Epigastric pain (principal); K92.1 Melena; K29.70 Gastritis, unspecified, without bleeding; D68.51 Activated protein C resistance; R19.7 Diarrhea, unspecified; J45.909 Unspecified asthma, uncomplicated; Z86.711 Personal history of pulmonary embolism; Z79.01 Long term (current) use of anticoagulants; F17.200 Nicotine dependence, unspecified, uncomplicated; Z88.2 Allergy status to sulfonamides
CPT/HCPCS: 43235; 45378; J2405

== ENCOUNTER → 2023-08-20 | Outpatient (REF) | payer OTHER ==
[~2023-08-20] MED LIST changes: +PROM25TA12 PO
[2023-08-20 18:47] LABS: BASO # 0.1 10^3/uL (0.0-0.2); BASO % 0.7 % (0.0-1.0); EOS # 0.2 10^3/uL (0.0-0.5); EOS % 1.5 % (0.0-3.0); HEMOGLOBIN 13.6 g/dl (12.0-15.5); LYMPH # 4.5 10^3/uL (1.5-5.0); LYMPH % 34.1 % (24.0-44.0); MEAN CORPUSCULAR HEMOGLOBIN 33.3 pg (27.0-33.0); MONO # 0.7 10^3/uL (0.0-0.8); MONO % 5.4 % (2.0-8.0); NEUTROPHILS # 7.6 10^3/uL (1.5-8.5); PLATELET COUNT, AUTOMATED 319 10^3/uL (150-450); RED BLOOD COUNT 4.08 10^6/uL (4.00-5.40); WHITE BLOOD COUNT 13.2 10^3/uL (4.0-10.0)
[2023-08-20 19:08] LABS: ALBUMIN 3.5 G/DL (3.2-5.2); ALKALINE PHOSPHATASE 118 U/L (46-116); ALT/SGPT 15 U/L (7.0-40); AST/SGOT 16 U/L (<34); BILIRUBIN,TOTAL 0.3 MG/DL (0.3-1.2); BLOOD UREA NITROGEN 8 MG/DL (9-23); CALCIUM LEVEL 9.1 MG/DL (8.5-10.1); CARBON DIOXIDE LEVEL 30 MMOL/L (20-31); CHLORIDE LEVEL 107 MMOL/L (98-107); CREATININE FOR GFR 0.81 MG/DL (0.55-1.30); GLOMERULAR FILTRATION RATE > 60.0 (>51); GLUCOSE, FASTING 80 MG/DL (60-100); POTASSIUM SERUM 3.9 MMOL/L (3.5-5.1); SODIUM LEVEL 142 MMOL/L (136-145); TOTAL PROTEIN 6.2 G/DL (5.7-8.2)
== END ==
LOC: M SFHCCLAY 13:27
PROVIDERS: ATTEND Nurse Practitioner Family
DX: R10.13 Epigastric pain (principal); R31.9 Hematuria, unspecified

== ENCOUNTER → 2023-08-26 | Outpatient (CLI) | payer OTHER | LOC: M WHC 14:43 | PROVIDERS: ATTEND Physician Assistant | DX: N83.201 Unspecified ovarian cyst, right side (principal) ==

== ENCOUNTER → 2023-08-26 | Outpatient (REF) | payer OTHER ==
[2023-08-26 18:34] LABS: APPEARANCE, URINE HAZY (CLEAR); BACTERIA, URINE AUTO NEGATIVE (NEGATIVE); BILIRUBIN, URINE AUTO NEGATIVE (NEGATIVE); BLOOD, URINE BLOOD 3+ (NEGATIVE); COLOR, URINE YELLOW (YELLOW); GLUCOSE, URINE (UA) AUTO NEGATIVE (NEGATIVE); KETONE, URINE AUTO TRACE mg/dL (NEGATIVE); LEUKOCYTE ESTERASE, URINE AUTO NEGATIVE (NEGATIVE); MUCUS, URINE SMALL (NEGATIVE); NITRITE, URINE AUTO NEGATIVE (NEGATIVE); PROTEIN, URINE AUTO 1+ mg/dL (NEGATIVE); RBC, URINE AUTO TNTC /HPF (0-3); SPECIFIC GRAVITY URINE AUTO 1.023 (1.002-1.035); SQUAMOUS EPITHELIAL CELL UR AU 4 /HPF (0-6); WBC, URINE AUTO 1 /HPF (0-3)
== END ==
LOC: M SFHCCLAY 17:16
PROVIDERS: ATTEND Nurse Practitioner Family
DX: R31.9 Hematuria, unspecified (principal)

== ENCOUNTER → 2023-08-27 | Outpatient (CLI) | payer OTHER | LOC: M WHC 09:31 | PROVIDERS: ATTEND Nurse Practitioner Family | DX: R10.11 Right upper quadrant pain (principal) ==

== ENCOUNTER → 2023-09-01 | Outpatient (CLI) | payer OTHER ==
[2023-09-01 11:17] LABS: APPEARANCE, URINE HAZY (CLEAR); BACTERIA, URINE AUTO 1+ (NEGATIVE); BILIRUBIN, URINE AUTO NEGATIVE (NEGATIVE); BLOOD, URINE BLOOD 2+ (NEGATIVE); COLOR, URINE YELLOW (YELLOW); GLUCOSE, URINE (UA) AUTO NEGATIVE (NEGATIVE); KETONE, URINE AUTO NEGATIVE (NEGATIVE); LEUKOCYTE ESTERASE, URINE AUTO NEGATIVE (NEGATIVE); MUCUS, URINE SMALL (NEGATIVE); NITRITE, URINE AUTO NEGATIVE (NEGATIVE); PROTEIN, URINE AUTO NEGATIVE (NEGATIVE); RBC, URINE AUTO TNTC /HPF (0-3); SQUAMOUS EPITHELIAL CELL UR AU 1 /HPF (0-6); UROBILINOGEN, URINE AUTO 0.2 mg/dL (0.0-2.0); WBC, URINE AUTO 0 /HPF (0-3)
== END ==
LOC: M RAD 10:34
PROVIDERS: ATTEND Nurse Practitioner Family
DX: R10.9 Unspecified abdominal pain (principal)

== ENCOUNTER → 2023-09-08 | Outpatient (REF) | payer OTHER ==
[2023-09-08 17:28] LABS: APPEARANCE, URINE HAZY (CLEAR); BACTERIA, URINE AUTO NEGATIVE (NEGATIVE); BILIRUBIN, URINE AUTO NEGATIVE (NEGATIVE); BLOOD, URINE BLOOD 3+ (NEGATIVE); COLOR, URINE YELLOW (YELLOW); GLUCOSE, URINE (UA) AUTO NEGATIVE (NEGATIVE); KETONE, URINE AUTO TRACE mg/dL (NEGATIVE); LEUKOCYTE ESTERASE, URINE AUTO NEGATIVE (NEGATIVE); MUCUS, URINE SMALL (NEGATIVE); NITRITE, URINE AUTO NEGATIVE (NEGATIVE); PROTEIN, URINE AUTO NEGATIVE (NEGATIVE); RBC, URINE AUTO TNTC /HPF (0-3); SPECIFIC GRAVITY URINE AUTO 1.021 (1.002-1.035); SQUAMOUS EPITHELIAL CELL UR AU 0 /HPF (0-6); WBC, URINE AUTO 0 /HPF (0-3)
== END ==
LOC: M SMT 16:49
PROVIDERS: ATTEND Urology
DX: R31.29 Other microscopic hematuria (principal); N20.0 Calculus of kidney

== ENCOUNTER → 2023-09-21 | Outpatient (REF) | payer OTHER ==
[~2023-09-21] MED LIST changes: +OMEP40CA5 PO
[2023-09-21 17:50] LABS: HEMATOCRIT 39.9 % (36.0-47.0); HEMOGLOBIN 13.5 g/dl (12.0-15.5); MEAN CORPUSCULAR HEMOGLOBIN 33.8 pg (27.0-33.0); MEAN CORPUSCULAR HGB CONC 33.8 g/dl (32.0-36.5); PLATELET COUNT, AUTOMATED 361 10^3/uL (150-450); RED BLOOD COUNT 3.99 10^6/uL (4.00-5.40); WHITE BLOOD COUNT 20.6 10^3/uL (4.0-10.0)
[2023-09-21 18:24] LABS: ALBUMIN 3.6 G/DL (3.2-5.2); ALKALINE PHOSPHATASE 157 U/L (46-116); ALT/SGPT 18 U/L (7.0-40); AST/SGOT 17 U/L (<34); BILIRUBIN,TOTAL 0.3 MG/DL (0.3-1.2); BLOOD UREA NITROGEN 9 MG/DL (9-23); CALCIUM LEVEL 9.2 MG/DL (8.5-10.1); CARBON DIOXIDE LEVEL 30 MMOL/L (20-31); CHLORIDE LEVEL 107 MMOL/L (98-107); CREATININE FOR GFR 0.69 MG/DL (0.55-1.30); GLOMERULAR FILTRATION RATE > 60.0 (>51); GLUCOSE, FASTING 80 MG/DL (60-100); POTASSIUM SERUM 4.1 MMOL/L (3.5-5.1); SODIUM LEVEL 140 MMOL/L (136-145); TOTAL PROTEIN 6.4 G/DL (5.7-8.2)
== END ==
LOC: M SFHCCLAY 10:19
PROVIDERS: ATTEND Urology
DX: N20.0 Calculus of kidney (principal)

== ENCOUNTER → 2023-09-21 | Outpatient (CLI) | payer OTHER | LOC: M CLY 10:25 | PROVIDERS: ATTEND Urology | DX: R31.29 Other microscopic hematuria (principal) ==

== ENCOUNTER → 2023-09-22 | Outpatient (REF) | payer OTHER ==
[2023-09-22 16:59] LABS: APPEARANCE, URINE CLEAR (CLEAR); BACTERIA, URINE AUTO NEGATIVE (NEGATIVE); BILIRUBIN, URINE AUTO NEGATIVE (NEGATIVE); BLOOD, URINE BLOOD 1+ (NEGATIVE); COLOR, URINE YELLOW (YELLOW); GLUCOSE, URINE (UA) AUTO NEGATIVE (NEGATIVE); KETONE, URINE AUTO NEGATIVE (NEGATIVE); LEUKOCYTE ESTERASE, URINE AUTO NEGATIVE (NEGATIVE); NITRITE, URINE AUTO NEGATIVE (NEGATIVE); PROTEIN, URINE AUTO NEGATIVE (NEGATIVE); RBC, URINE AUTO 11 /HPF (0-3); SPECIFIC GRAVITY URINE AUTO 1.011 (1.002-1.035); SQUAMOUS EPITHELIAL CELL UR AU 2 /HPF (0-6); UROBILINOGEN, URINE AUTO 0.2 mg/dL (0.0-2.0); WBC, URINE AUTO 1 /HPF (0-3)
== END ==
LOC: M SFHCCLAY 14:16
PROVIDERS: ATTEND Nurse Practitioner Family
DX: Z01.818 Encounter for other preprocedural examination (principal)

== ENCOUNTER → 2023-09-23 | Outpatient (REF) | payer OTHER | LOC: M SFHCCLAY 11:21 | PROVIDERS: ATTEND Nurse Practitioner Family | DX: K92.1 Melena (principal); R19.7 Diarrhea, unspecified ==

== ENCOUNTER → 2023-09-27 | Outpatient (CLI) | payer OTHER ==
[2023-09-27 16:18] LABS: ALKALINE PHOSPHATASE 154 U/L (46-116); ALT/SGPT 15 U/L (7.0-40); AST/SGOT 15 U/L (<34); BILIRUBIN,TOTAL 0.5 MG/DL (0.3-1.2); BLOOD UREA NITROGEN 7 MG/DL (9-23); CALCIUM LEVEL 9.1 MG/DL (8.5-10.1); CARBON DIOXIDE LEVEL 27 MMOL/L (20-31); CHLORIDE LEVEL 104 MMOL/L (98-107); CREATININE FOR GFR 0.72 MG/DL (0.55-1.30); GLOMERULAR FILTRATION RATE > 60.0 (>51); GLUCOSE, FASTING 94 MG/DL (60-100); POTASSIUM SERUM 3.9 MMOL/L (3.5-5.1); SODIUM LEVEL 138 MMOL/L (136-145); TOTAL PROTEIN 6.7 G/DL (5.7-8.2)
[2023-09-27 16:23] LABS: BASO # 0.1 10^3/uL (0.0-0.2); BASO % 0.4 % (0.0-1.0); EOS # 0.1 10^3/uL (0.0-0.5); EOS % 0.9 % (0.0-3.0); HEMATOCRIT 42.2 % (36.0-47.0); HEMOGLOBIN 14.6 g/dl (12.0-15.5); LYMPH # 3.1 10^3/uL (1.5-5.0); MEAN CORPUSCULAR HGB CONC 34.6 g/dl (32.0-36.5); MEAN CORPUSCULAR VOLUME 98.4 fl (80.0-96.0); MONO # 1.2 10^3/uL (0.0-0.8); MONO % 8.7 % (2.0-8.0); NEUTROPHILS # 9.6 10^3/uL (1.5-8.5); NEUTROPHILS % 67.4 % (36.0-66.0); PLATELET COUNT, AUTOMATED 411 10^3/uL (150-450); RED BLOOD COUNT 4.29 10^6/uL (4.00-5.40); WHITE BLOOD COUNT 14.2 10^3/uL (4.0-10.0)
== END ==
LOC: M PLALAB 12:54
PROVIDERS: ATTEND Nurse Practitioner Family
DX: Z01.818 Encounter for other preprocedural examination (principal)

== ENCOUNTER 2023-09-30 06:57 | Day surgery (SDC) | payer OTHER ==
[~2023-09-30] VITALS: Ht 172.7 cm; Wt 64.8 kg
[~2023-09-30 06:57] MED LIST changes: +ceFAZolin SOD 2 GM in IV 1 EA IV ONE
[2023-09-30] MEDS ORDERED: LR 1,000 ML IV SCH (07:25)
[2023-09-30] MEDS ORDERED: LIDOCAINE 2% 100MG/5ML SDV (FOR ANES.) As Ordered ONE (07:41)
[2023-09-30] MEDS ORDERED: propofoL 200 MG/20 ML VIAL As Ordered ONE (07:41)
[2023-09-30] MEDS ORDERED: ONDANSETRON 4MG 2ML VIAL As Ordered ONE (07:41)
[2023-09-30] MEDS ORDERED: KETOROLAC 60MG 2ML VIAL As Ordered ONE (07:42)
[2023-09-30] MEDS ORDERED: fentaNYL 100 MCG/2 ML INJECTION As Ordered ONE (07:49)
[2023-09-30] MEDS ORDERED: MIDAZOLAM INJ 2MG/2ML VIAL As Ordered ONE (07:49)
[2023-09-30] MEDS ORDERED: ACETAMINOPHEN 1000MG 100ML IV BAG As Ordered ONE (08:37)
[2023-09-30] MEDS ORDERED: HYDR-3713 PO (09:09)
[2023-09-30] MEDS ORDERED: fentaNYL 100 MCG/2 ML INJECTION IV PRN (09:30)
[2023-09-30] MEDS ORDERED: MORPHINE 2 MG/ML 1ML VIAL IV PRN (09:30)
[2023-09-30] MEDS ORDERED: ONDANSETRON 4MG 2ML VIAL IV PRN (09:30)
[2023-09-30] MEDS: oxyCODONE 5MG TAB PO PRN (09:37)
[2023-09-30 10:00] VITALS: BP 139/84; TEMP 97; O2SAT 98
== END 2023-09-30 10:05 | disposition home or self-care (01) ==
LOC: M SDC 06:57
PROVIDERS: ATTEND Urology
DX: N20.0 Calculus of kidney (principal); D68.51 Activated protein C resistance; K21.9 Gastro-esophageal reflux disease without esophagitis; F17.218 Nicotine dependence, cigarettes, with other nicotine-induced disorders; J45.909 Unspecified asthma, uncomplicated; Z86.711 Personal history of pulmonary embolism; Z79.01 Long term (current) use of anticoagulants; Z79.51 Long term (current) use of inhaled steroids; Z79.899 Other long term (current) drug therapy; Z88.0 Allergy status to penicillin; Z88.8 Allergy status to other drugs, medicaments and biological substances
CPT/HCPCS: 50590; 74018; J0131; J1100; J1885; J2250; J2405; J3010

== ENCOUNTER 2023-10-15 06:41 | Day surgery (SDC) | payer OTHER ==
[~2023-10-15] VITALS: Ht 172.7 cm; Wt 66.2 kg
[~2023-10-15 06:41] MED LIST changes: +HYDR-3713 PO; -ceFAZolin SOD 2 GM in IV 1 EA IV ONE
[2023-10-15] MEDS ORDERED: propofoL 200 MG/20 ML VIAL As Ordered ONE (06:59)
[2023-10-15] MEDS ORDERED: LIDOCAINE 2% 100MG/5ML SDV (FOR ANES.) As Ordered ONE (06:59)
[2023-10-15] MEDS: NS 1,000 ML IV ONE (07:09)
[2023-10-15 07:53] VITALS: TEMP 96.5
[2023-10-15 08:07] VITALS: BP 153/78; O2SAT 98
== END 2023-10-15 08:16 | disposition home or self-care (01) ==
LOC: M OPP 06:41
PROVIDERS: ATTEND Surgery
DX: Z12.11 Encounter for screening for malignant neoplasm of colon (principal); Z86.010 Personal history of colon polyps; K63.5 Polyp of colon; D12.5 Benign neoplasm of sigmoid colon; K64.1 Second degree hemorrhoids; K22.89 Other specified disease of esophagus; K29.71 Gastritis, unspecified, with bleeding; F17.200 Nicotine dependence, unspecified, uncomplicated; Z79.01 Long term (current) use of anticoagulants; Z79.51 Long term (current) use of inhaled steroids; Z79.891 Long term (current) use of opiate analgesic; Z79.899 Other long term (current) drug therapy

== ENCOUNTER → 2023-10-26 | Outpatient (CLI) | payer OTHER | LOC: M PLALAB 14:41 | PROVIDERS: ATTEND Urology | DX: N20.0 Calculus of kidney (principal) ==

== ENCOUNTER → 2023-12-28 | Outpatient (CLI) | payer OTHER ==
[~2023-12-28] MED LIST changes: +ONDA-282 PO; -ONDA4TAB6 PO
[2023-12-28 10:37] LABS: BASO # 0.1 10^3/uL (0.0-0.2); BASO % 0.4 % (0.0-1.0); EOS # 0.1 10^3/uL (0.0-0.5); EOS % 0.5 % (0.0-3.0); HEMATOCRIT 42.3 % (36.0-47.0); HEMOGLOBIN 14.7 g/dl (12.0-15.5); LYMPH # 3.2 10^3/uL (1.5-5.0); LYMPH % 17.3 % (24.0-44.0); MEAN CORPUSCULAR HEMOGLOBIN 33.9 pg (27.0-33.0); MEAN CORPUSCULAR HGB CONC 34.8 g/dl (32.0-36.5); MEAN CORPUSCULAR VOLUME 97.5 fl (80.0-96.0); MONO # 1.6 10^3/uL (0.0-0.8); MONO % 8.7 % (2.0-8.0); NEUTROPHILS # 13.4 10^3/uL (1.5-8.5); NEUTROPHILS % 72.6 % (36.0-66.0); PLATELET COUNT, AUTOMATED 374 10^3/uL (150-450); RED BLOOD COUNT 4.34 10^6/uL (4.00-5.40); WHITE BLOOD COUNT 18.5 10^3/uL (4.0-10.0)
[2023-12-28 10:46] LABS: ERYTHROCYTE SEDIMENTATION RATE 12 mm/hr (0-30)
[2023-12-28 10:54] LABS: IRON (FE) 174 UG/DL (50-170); LDH LACTATE DEHYDROGENASE 234 U/L (120-246)
[2023-12-28 10:55] LABS: RHEUMATOID FACTOR QUANT < 3.5 IU/ML (<14)
== END ==
LOC: M PLALAB 08:17
PROVIDERS: ATTEND Internal Medicine Hematology
DX: D72.828 Other elevated white blood cell count (principal)

== ENCOUNTER → 2024-01-07 | Outpatient (CLI) | payer OTHER ==
[2024-01-07 18:37] LABS: LDH LACTATE DEHYDROGENASE 239 U/L (120-246)
[2024-01-07 18:41] LABS: FOLLICLE STIMULATING HORMONE 114.3 mIU/ML
[2024-01-07 18:56] LABS: CA19-9 TUMOR MARKER,CARBOHYDRA < 1.2 U/ML (<35.0)
== END ==
LOC: M PLALAB 14:47
PROVIDERS: ATTEND Obstetrics & Gynecology
DX: N83.291 Other ovarian cyst, right side (principal)

== ENCOUNTER → 2024-01-07 | Outpatient (CLI) | payer OTHER | LOC: M WHC 13:48 | PROVIDERS: ATTEND Obstetrics & Gynecology | DX: N83.291 Other ovarian cyst, right side (principal) ==

== ENCOUNTER → 2024-06-14 | Outpatient (CLI) | payer OTHER ==
[~2024-06-14] MED LIST changes: +GABA-1490 PO; -GABA600T4 PO
== END ==
LOC: M LAB 07:22
PROVIDERS: ATTEND Internal Medicine Hematology
DX: D72.828 Other elevated white blood cell count (principal); R79.89 Other specified abnormal findings of blood chemistry

== ENCOUNTER → 2025-04-24 | Outpatient (REF) | payer OTHER ==
[~2025-04-24] MED LIST changes: +DILT0.05; +LOSA50TA28
[2025-04-24 18:46] LABS: BASO # 0.1 10^3/uL (0.0-0.2); BASO % 0.7 % (0.0-1.0); C REACTIVE PROTEIN QUANTITATIV < 0.50 MG/DL (<1.0); EOS # 0.1 10^3/uL (0.0-0.5); EOS % 0.7 % (0.0-3.0); LYMPH # 3.2 10^3/uL (1.5-5.0); LYMPH % 29.6 % (24.0-44.0); MONO # 0.8 10^3/uL (0.0-0.8); MONO % 7.5 % (2.0-8.0); NEUTROPHILS # 6.5 10^3/uL (1.5-8.5); NEUTROPHILS % 61.0 % (36.0-66.0); PLATELET COUNT, AUTOMATED 391 10^3/uL (150-450)
[2025-04-24 18:47] LABS: IRON (FE) 95 UG/DL (50-170); PERCENT SATURATION 33.3 % (13.2-45.0); RHEUMATOID FACTOR QUANT 3.9 IU/ML (<14)
[2025-04-24 18:48] LABS: ALT/SGPT 20 U/L (7.0-40); AST/SGOT 31 U/L (<34); CALCIUM LEVEL 8.9 MG/DL (8.5-10.1); CARBON DIOXIDE LEVEL 26 MMOL/L (20-31); CHLORIDE LEVEL 107 MMOL/L (98-107); CHOLESTEROL LEVEL 182 MG/DL (<200); CHOLESTEROL RISK RATIO 2.35 (<5); CREATININE FOR GFR 0.82 MG/DL (0.55-1.30); GLOMERULAR FILTRATION RATE 85.5 (>51); LDL CHOLESTEROL 70.6 MG/DL (<100); NON-HDL-C 104.6 MG/DL; POTASSIUM SERUM 3.6 MMOL/L (3.5-5.1); SODIUM LEVEL 143 MMOL/L (136-145); TRIGLYCERIDES LEVEL 170 MG/DL (<150)
[2025-04-24 18:49] LABS: FREE T4 1.11 NG/DL (0.89-1.76)
[2025-04-24 18:54] LABS: ERYTHROCYTE SEDIMENTATION RATE 24 mm/hr (0-30)
[2025-04-24 19:12] LABS: ESTIMATED AVERAGE GLUCOSE 94.0 MG/DL (60-110)
== END ==
LOC: M SFHCCLAY 13:08
PROVIDERS: ATTEND Nurse Practitioner Family
DX: I10 Essential (primary) hypertension (principal); Z86.711 Personal history of pulmonary embolism; N83.209 Unspecified ovarian cyst, unspecified side; F17.210 Nicotine dependence, cigarettes, uncomplicated; J43.9 Emphysema, unspecified; D72.828 Other elevated white blood cell count; R79.89 Other specified abnormal findings of blood chemistry

== ENCOUNTER → 2025-05-30 | Outpatient (REF) | payer OTHER ==
[2025-05-30 18:33] LABS: ALT/SGPT 17.0 U/L (7.0-40); AST/SGOT 25.0 U/L (<34); CALCIUM LEVEL 9.1 MG/DL (8.5-10.1); CARBON DIOXIDE LEVEL 29.0 MMOL/L (20-31); CHLORIDE LEVEL 104.0 MMOL/L (98-107); CREATININE FOR GFR 0.88 MG/DL (0.55-1.30); GLOMERULAR FILTRATION RATE 78.1 (>51); POTASSIUM SERUM 2.8 MMOL/L (3.5-5.1); SODIUM LEVEL 142.0 MMOL/L (136-145)
== END ==
LOC: M SFHCCLAY 11:10
PROVIDERS: ATTEND Nurse Practitioner Family
DX: I10 Essential (primary) hypertension (principal)